=== PATIENT | male | born 1935 | race Caucasian/White ===

== ENCOUNTER 2016-12-25 11:58 | Inpatient (IN) | payer MEDICARE, BC ==
[2016-12-25] VITALS (13 sets, daily range): BP systolic 104–137; BP diastolic 51–63; PULSE 88–122; RESP 22–34; TEMP 98.2–98.7; O2SAT 70–98
[~2016-12-25] VITALS: Ht 170.2 cm; Wt 60.7 kg
[~2016-12-25 11:58] MED LIST: ALBU6.7H INH; ASPI81 PO; ATRO17AE INH; AZEL0.05 EACH NARE; CLIN1CAP6 PO; FLUT1INH INH; HYZA50TA2 PO; LOVA1TAB47 PO; NEXI40CA PO; PROP1TAB PO; SPIRCAP INH; TAMS0.4C67 PO; TOPR25TA2 PO; ZYRT10TA12 PO
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
[2016-12-25] MEDS ORDERED: methylPREDNISolone SOD SUCC 125 MG/2 ML VIAL IVP ONE (12:15)
[2016-12-25] MEDS ORDERED: SODIUM CHLORIDE 0.9% FLUSH 10 ML FLUSH IVF PRN (12:15)
[2016-12-25] MEDS: RESP: ALBUTEROL 2.5 MG/IPRATROPIUM 0.5 MG NEB (SCH) INH ×3 (12:25→20:00)
[2016-12-25 12:28] LABS: AUTOMATED NEUTROPHIL # 14.5 TH/MM3 (1.8-7.7); BASOPHIL # 0.1 TH/MM3 (0-0.2); BASOPHIL % 0.4 % (0.0-2.0); EOSINOPHIL # 0.1 TH/MM3 (0-0.4); EOSINOPHIL % 0.7 % (0.0-4.0); HEMO FLAGS DIFF FINAL; LYMPH % 11.7 % (9.0-44.0); LYMPHOCYTE # 2.1 TH/MM3 (1.0-4.8); MEAN CELL VOLUME 87.7 FL (80.0-100.0); MEAN CORPUSCULAR HEMOGLOBIN 29.3 PG (27.0-34.0); MEAN CORPUSCULAR HGB CONC 33.5 % (32.0-36.0); MONO % 5.5 % (0.0-8.0); NEUT % 81.7 % (16.0-70.0); PLATELET COUNT 299 TH/MM3 (150-450); RED BLOOD COUNT 5.24 MIL/MM3 (4.50-5.90); RED CELL DISTRIBUTION WIDTH 13.7 % (11.6-17.2); WHITE BLOOD COUNT 17.8 TH/MM3 (4.0-11.0)
--- NOTE | 2016-12-25 12:36 | RADRPT ---
EXAM DATE/TIME: 12/25/2016 12:22 [facility] COMPARISON: CHEST SINGLE AP, December 24, 2015, 9:19. INDICATIONS : Shortness of breath. MEDICAL HISTORY : Hypercholesterolemia. Hypertension Chronic obstructive pulmonary disease. SURGICAL HISTORY : Pacemaker. ENCOUNTER: Initial ACUITY: 1 day PAIN SCORE: 0/10 LOCATION: Bilateral chest FINDINGS: The patient has a pacing/AICD device in place from the left subclavian approach. The heart size is no rmal. There is patchy increased density/chronic interstitial change in the mid and lower lungs being most prominent the left lower lobe. There is increase density in the retrocardiac area and silhouetti ng of the left hemidiaphragm. CONCLUSION: New increased density in the left lower lobe silhouette the left hemidiaphragm. Some degree of consol idation, atelectasis and possible effusion at the left base needs to be considered. There is underlyi ng chronic interstitial change. Hunter Guthrie MD on December 25, 2016 at 12:24 Board Certified Radiologist. This report was verified electronically.
[2016-12-25 12:40] LABS: BLOOD GAS BASE EXCESS 4.5 mmol/L (-2-2); BLOOD GAS HCO3 28 mmol/L (22-26); BLOOD GAS METHEMOGLOBIN 0.5 % (0-2); BLOOD GAS O2 HGB SATURATION 95 % (90-100); BLOOD GAS OXYGEN CONTENT 20.5 Vol % (12.0-20.0); BLOOD GAS PCO2 39 mmHg (38-42); BLOOD GAS PO2 93 mmHG (61-120); BLOOD GAS TOTAL HGB 15.3 G/DL (12.0-16.0); TEMP CORR TO 98.6
[2016-12-25] MEDS ORDERED: LEVOFLOXACIN 750 MG PREMIX INJ 150 ML IV STA (12:40)
[2016-12-25 12:41] LABS: CRITICAL VALUE NO; DRAW SITE RT RADIAL; FIO2 100 %; NUMBER OF ARTERIAL PUNCTURES 1; OXYGEN DEVICE BiPAP; STAT YES; ULNAR PULSE PRESENT; VENT SETTINGS IPAP10/ EPAP5
[2016-12-25 12:50] LABS: ALT (GPT) 13 U/L (12-78); ANION GAP 10 MEQ/L (5-15); AST (GOT) 11 U/L (15-37); BICARBONATE 30.2 MEQ/L (21.0-32.0); BLOOD UREA NITROGEN 24 MG/DL (7-18); CHLORIDE 99 MEQ/L (98-107); GLOMERULAR FILTRATION RATE 67 ML/MIN (>89); SODIUM (NA) 139 MEQ/L (136-145)
[2016-12-25 12:52] LABS: ALKALINE PHOSPHATASE 71 U/L (45-117); TOTAL BILIRUBIN ADULT 1.4 MG/DL (0.2-1.0)
--- NOTE | 2016-12-25 13:18 | PD ---
Physical Exam Narrative Patient was seen and examined with my assistant news director. Data Data Last Documented VS Vital Signs Date Time Temp Pulse Resp B/P (MAP) Pulse Ox O2 Delivery O2 Flow Rate FiO2 12/25/16 13:15 98.2 12/25/16 13:00 91 Non-Rebreather 15.00 12/25/16 12:22 100 12/25/16 12:05 124 36 Orders Orders Complete Blood Count With Diff (12/25/16 12:06) Comprehensive Metabolic Panel (12/25/16 12:06) B-Type Natriuretic Peptide (12/25/16 12:06) Arterial Blood Gas (Abg) (12/25/16 12:06) Urinalysis - C+S If Indicated (12/25/16 12:06) Blood Culture (12/25/16 12:06) Iv Access Insert/Monitor (12/25/16 12:06) Electrocardiogram (12/25/16 12:06) Ecg Monitoring (12/25/16 12:06) Oximetry (12/25/16 12:06) Oxygen Administration (12/25/16 12:06) Chest, Single Ap (12/25/16 12:06) Sodium Chloride 0.9% Flush (Ns Flush) (12/25/16 12:15) Lactic Acid Sepsis Protocol (12/25/16 12:06) Albuterol-Ipratropium Neb (Duoneb Neb) (12/25/16 12:15) Resp Bipap / Cpap Non Invas Vt (12/25/16 12:12) Resp Bipap / Cpap Non Invas Vt (12/25/16 12:14) Levofloxacin 750 Mg Premix Inj (Levaquin (12/25/16 12:40) Labs Laboratory Tests Test 12/25/16 12:10 12/25/16 12:28 White Blood Count 17.8 TH/MM3 Red Blood Count 5.24 MIL/MM3 Hemoglobin 15.4 GM/DL Hematocrit 46.0 % Mean Corpuscular Volume 87.7 FL Mean Corpuscular Hemoglobin 29.3 PG Mean Corpuscular Hemoglobin Concent 33.5 % Red Cell Distribution Width 13.7 % Platelet Count 299 TH/MM3 Mean Platelet Volume 7.4 FL Neutrophils (%) (Auto) 81.7 % Lymphocytes (%) (Auto) 11.7 % Monocytes (%) (Auto) 5.5 % Eosinophils (%) (Auto) 0.7 % Basophils (%) (Auto) 0.4 % Neutrophils # (Auto) 14.5 TH/MM3 Lymphocytes # (Auto) 2.1 TH/MM3 Monocytes # (Auto) 1.0 TH/MM3 Eosinophils # (Auto) 0.1 TH/MM3 Basophils # (Auto) 0.1 TH/MM3 CBC Comment DIFF FINAL Differential Comment Blood Urea Nitrogen 24 MG/DL Creatinine 1.06 MG/DL Random Glucose 124 MG/DL Total Protein 7.9 GM/DL Albumin 3.1 GM/DL Calcium Level 8.7 MG/DL Alkaline Phosphatase 71 U/L Aspartate Amino Transf (AST/SGOT) 11 U/L Alanine Aminotransferase (ALT/SGPT) 13 U/L Total Bilirubin 1.4 MG/DL Sodium Level 139 MEQ/L Potassium Level 3.0 MEQ/L Chloride Level 99 MEQ/L Carbon Dioxide Level 30.2 MEQ/L Anion Gap 10 MEQ/L Estimat Glomerular Filtration Rate 67 ML/MIN Lactic Acid Level 2.3 mmol/L Blood Gas Puncture Site RT RADIAL Blood Gas Patient Temperature 98.6 Blood Gas HCO3 28 mmol/L Blood Gas Base Excess 4.5 mmol/L Blood Gas Oxygen Saturation 95 % Arterial Blood pH 7.47 Arterial Blood Partial Pressure CO2 39 mmHg Arterial Blood Partial Pressure O2 93 mmHG Arterial Blood Oxygen Content 20.5 Vol % Arterial Blood Carboxyhemoglobin 2.0 % Arterial Blood Methemoglobin 0.5 % Blood Gas Hemoglobin 15.3 G/DL Oxygen Delivery Device BiPAP Blood Gas Ventilator Setting IPAP10/ EPAP5 Blood Gas Inspired Oxygen 100 % MDM Supervised Visit with ABBI: Yes Regino Owusu MD Dec 25, 2016 13:18
[2016-12-25] MEDS ORDERED: POTASSIUM CHLOR 20 MEQ PREMIX 100 ML IV ONE (13:30)
[2016-12-25 14:21] LABS: LACTIC ACID GHOST NOT REPORTABLE
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
[2016-12-25] MEDS ORDERED: POTASSIUM PHOSPHATE MONOBASIC 500 MG TAB PO/TUBE PRN (15:00)
[2016-12-25] MEDS ORDERED: POTASSIUM CHLOR 40 MEQ PREMIX 100 ML IV PRN ×2 (15:00)
[2016-12-25] MEDS ORDERED: POTASSIUM PHOSPHATE INJ 30 MMOL in SODIUM CHLOR 0.9% 250 ML INJ 250 ML IV PRN (15:00)
[2016-12-25] MEDS ORDERED: SODIUM PHOSPHATE INJ 30 MMOL in SODIUM CHLOR 0.9% 250 ML INJ 240 ML IV PRN (15:00)
[2016-12-25] MEDS ORDERED: MAGNESIUM OXIDE 400 MG TAB PO PRN (15:00)
[2016-12-25] MEDS ORDERED: POTASSIUM PHOSPHATE MONOBASIC 500 MG TAB PO PRN (15:00)
[2016-12-25] MEDS ORDERED: MAGNESIUM SULFATE INJ 4 GM in SODIUM CHLORIDE 0.9% INJ 92 ML IV PRN (15:00)
[2016-12-25] MEDS ORDERED: MISCELLANEOUS NURSING INFORMATION XX SCH (15:00)
[2016-12-25] MEDS ORDERED: CHLORHEXIDINE GLUCONATE 2 % 1 PACK (2 CLOTHS) TOP PRN (15:00)
[2016-12-25] MEDS ORDERED: RESP: ALBUTEROL 2.5 MG/IPRATROPIUM 0.5 MG NEB (PRN) INH (15:00)
[2016-12-25] MEDS ORDERED: MAGNESIUM SULFATE INJ 2 GM in SODIUM CHLORIDE 0.9% INJ 96 ML IV PRN (15:00)
[2016-12-25] MEDS ORDERED: POTASSIUM CHLOR 20 MEQ PREMIX 100 ML IV PRN (15:00)
[2016-12-25] MEDS ORDERED: ACETAMINOPHEN 325 MG TAB PO PRN (15:00)
[2016-12-25] MEDS ORDERED: ONDANSETRON HCL 4 MG/2 ML VIAL IV PUSH PRN (15:00)
[2016-12-25] MEDS: HEPARIN SODIUM - SQ 10,000 UNITS/ML VIAL SQ SCH ×2 (15:27→23:30)
[2016-12-25] MEDS: POTASSIUM CHLOR 20 MEQ PREMIX 100 ML IV PRN ×3 (16:52→20:56)
[2016-12-25] MEDS: methylPREDNISolone SOD SUCC 125 MG/2 ML VIAL IV PUSH SCH (20:50)
[2016-12-25] MEDS: DOCUSATE SODIUM 50 MG/SENNA 8.6 MG TAB PO SCH (20:50)
[2016-12-25] MEDS: FAMOTIDINE 20 MG TAB PO SCH (20:50)
[2016-12-26] VITALS (17 sets, daily range): BP systolic 102–128; BP diastolic 56–65; PULSE 82–100; RESP 22–28; TEMP 96.8–98.4; O2SAT 90–97
[2016-12-26 01:24] LABS: BACTERIA, URINE OCC /hpf; BLOOD, URINE NEG (NEG); COMMENT (UR) CULT NOT INDICATED; CULTURE IF INDICATED CULT NOT INDICATED; GLUCOSE,URINE NEG (NEG); HYALINE CAST, URINE 1 /lpf (RARE); KETONE, URINE 10 mg/dL (NEG); MUCUS URINE FEW /lpf (OCC); NITRITE,URINE NEG (NEG); PH, URINE 5.5 (5.0-8.5); SQUAMOUS EPITHELIAL CELL URINE <1 /hpf (0-5); URINE COLOR YELLOW (YELLW/STRAW)
[2016-12-26] MEDS: RESP: ALBUTEROL 2.5 MG/IPRATROPIUM 0.5 MG NEB (SCH) INH ×6 (03:31→20:09)
[2016-12-26] MEDS: CHLORHEXIDINE GLUCONATE 2 % 1 PACK (2 CLOTHS) TOP SCH (04:00)
--- NOTE | 2016-12-26 06:26 | RADRPT ---
EXAM DATE/TIME: 12/26/2016 05:26 [facility] COMPARISON: CHEST SINGLE AP, December 25, 2016, 12:22. INDICATIONS : Short of breath. MEDICAL HISTORY : None. SURGICAL HISTORY : Pacemaker. ENCOUNTER: Subsequent ACUITY: 3 days PAIN SCORE: 0/10 LOCATION: Bilateral chest FINDINGS: A single view of the chest demonstrates pacer leads overlying right atrium and right ventricle. Bilat eral mostly basilar airspace disease. No pneumothorax. Heart size upper limits normal. CONCLUSION: 1. Basilar airspace disease and small effusions, similar to December 25. No pneumothorax. Tom Fairchild MD on December 26, 2016 at 6:23 Board Certified Radiologist. This report was verified electronically.
[2016-12-26] MEDS: HEPARIN SODIUM - SQ 10,000 UNITS/ML VIAL SQ SCH ×3 (06:29→21:24)
[2016-12-26 07:24] LABS: HEMATOCRIT 42.8 % (39.0-51.0); MEAN CELL VOLUME 87.4 FL (80.0-100.0); MEAN CORPUSCULAR HEMOGLOBIN 29.4 PG (27.0-34.0); MEAN CORPUSCULAR HGB CONC 33.6 % (32.0-36.0); PLATELET COUNT 241 TH/MM3 (150-450); RED CELL DISTRIBUTION WIDTH 13.8 % (11.6-17.2); WHITE BLOOD COUNT 9.8 TH/MM3 (4.0-11.0)
[2016-12-26 07:29] LABS: REVIEW FLAG FINAL
[2016-12-26 07:49] LABS: BICARBONATE 29.4 MEQ/L (21.0-32.0); POTASSIUM 4.1 MEQ/L (3.5-5.1)
[2016-12-26] MEDS: FAMOTIDINE 20 MG TAB PO SCH ×2 (08:58→21:24)
[2016-12-26] MEDS: DOCUSATE SODIUM 50 MG/SENNA 8.6 MG TAB PO SCH ×2 (08:58→21:24)
[2016-12-26] MEDS: methylPREDNISolone SOD SUCC 125 MG/2 ML VIAL IV PUSH SCH ×2 (08:59→21:24)
[2016-12-26] MEDS ORDERED: SODIUM CHLOR 0.9% 1000 ML INJ 1,000 ML IV SCH (10:15)
--- NOTE | 2016-12-26 11:36 | PD.CONS ---
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 clinically warranted. == Palliative care symptoms. * Pain: Patient has a history of years of back pain. THough he frequently complains of back pain (per daughter) he rarely takes any analgesics. No other pain syndromes known. * Dyspnea: Currently comfortable at rest on high flow 02. Patient's dyspnea likely due to COPD exacerbation and/or pneumonia. Nebulizers, antibiotics, and steroids under way. No further recommendations at this time. * Anxiety: Does not appear to be an issue. * Depression: Does not appear to be an issue * Poor appetite/Wt loss: Patient complains he does not have much of an appetite and that he has lost about 20 lbs over the past year or so. Unclear is this is because of illness or not having the energy to shop and prepare meals. Will need to monitor. Albumin does not suggest long term care social worker malnutrition. Will watch food consumption during hospitalization to see if he eats well and food is brought to him. We will probably see increased appetite and weight gain on steroids. * Bowel activity: Hx of intermittent constipation per daughter. No bowel movements since hospitalized. Will start a bowel protocol. == Communication: Though it is time consuming, it is best for important communication to write things down so the patient can read them and then respond verbally. == Disposition: Patient is likely to require a period of rehab prior to returning to independent living (if he is ever able to return to independent living). Daughter very much wants to bring him back to [facility] and wants him to consider assisted living, but according to her, he has been very resistant. == Daughter is trying to make arrangements to fly here from [facility]. We can re-visit goals of care and resuscitation status when she is here to support him and assist with shared decision making. == Patient's regular game technician is Dr. Ponce if a cardiology consultation is ever needed. Dr. Gastelum is the patient's primary care physician. == Palliative care will continue to follow to assist with symptom management and further clarify goals of medical treatment as the clinical course evolves. . Thank you for the opportunity to participate in the care of Mr. Ayala. . Collaborating MD Comments . Attestation To help prompt me to consider important information that might be impacting today's encounter and assessment, information from prior notes written by myself or my colleagues may have been "brought forward" into today's note. My signature on this note, however, is an attestation that I personally performed the exam, history, and/or decision-making noted today, and, unless otherwise indicated, the interactions with patient, family, and staff as well as the review of records all occurred today. I also attest that the listed assessment and stated plan reflect my best clinical judgment today based on the combination of historical information, prior notes, and today's exam/ interactions. When time spent is documented, it refers only to time spent today by the signer, or if indicated, combined time spent today by collaborating physician/nurse practitioner. . Bayron Kasper MD Dec 26, 2016 11:36
--- NOTE | 2016-12-26 12:18 | HHI.HCSW ---
Rn Review Visit Advance Directive Attempted to identify legal decision maker. Daughter, Estefany, listed in EMR has a phone number ([phone]) that has a voicemail that has not been set up. Other providers unsuccessful with this number as well. Requested accurints to find other contact information/other family. Google search produced a potential match with #[phone]. Number just rings, no voicemail. Nurse able to obtain additional contact information for daughter: [phone]. I was able to speak with daughter, palliative care MD to follow-up. Iza Iraheta, VEGETABLE TIER Dec 26, 2016 12:18
--- NOTE | 2016-12-26 12:39 | EKG ---
Date Performed: 12/25/2016 Time Performed: 12:58:30 PTAGE: 81 years EKG: SINUS TACHYCARDIA Left bundle branch block ABNORMAL ECG PREVIOUS TRACING : 04/22/2010 18.07 Since the prior tracing, the sinus tachycardia is new, but there has otherwise been no significant serial change. DOCTOR: Theresa Harris Interpretating Date/Time 12/26/2016 12:37:42
[2016-12-26] MEDS: LEVOFLOXACIN 750 MG PREMIX INJ 150 ML IV SCH (12:41)
--- NOTE | 2016-12-26 14:20 | HHI.PR ---
Subjective Remarks Patient is pleasant elderly but he is extremely difficult to communicate with due to his hard hearing I tried with the witnessing of the nurse to assess and address his advanced directive, however when I asked him if he wants resuscitation he was not sure " I don't know "he repeat that many times he said his daughter may be able to help with this Yesterday the unit aide discussed with the family, was unable to fully address this issue, palliative care consulted, currently patient is on 50% nonrebreather mask at 91% SaO2 Objective Vitals Vital Signs Date Time Temp Pulse Resp B/P (MAP) Pulse Ox O2 Delivery O2 Flow Rate FiO2 12/26/16 14:00 95 12/26/16 12:00 98.4 96 22 107/56 (73) 93 12/26/16 12:00 96 12/26/16 09:22 94 Venturi Mask 6.00 50 12/26/16 08:47 93 Partial Rebreather 12.00 12/26/16 08:00 96.8 87 26 111/59 (76) 94 12/26/16 07:00 93 Partial Non-Rebreather 12.00 12/26/16 06:00 86 12/26/16 04:00 97.1 94 28 128/65 (86) 92 12/26/16 04:00 94 12/26/16 03:40 92 Venturi Mask 50 12/26/16 03:38 97 Partial Rebreather 12.00 12/26/16 02:00 82 12/26/16 00:00 97.0 82 23 107/60 (76) 96 12/26/16 00:00 82 12/25/16 22:00 88 12/25/16 20:00 98.5 98 28 104/56 (72) 98 12/25/16 20:00 98 12/25/16 20:00 94 Partial Non-Rebreather 12/25/16 18:00 100 12/25/16 16:00 98.5 104 29 106/60 (75) 94 12/25/16 16:00 106 12/25/16 15:49 98.7 105 22 119/63 (81) 94 12/25/16 15:30 12/25/16 14:28 117 32 114/51 (72) 84 Nasal Cannula 6.00 12/25/16 14:23 84 Nasal Cannula 6.00 I/O 12/25/16 12/25/16 12/25/16 12/26/16 12/26/16 12/26/16 07:00 15:00 23:00 07:00 15:00 23:00 Intake Total 550 ml 120 ml Output Total 0 ml 250 ml Balance 550 ml -130 ml Intake Oral 0 ml 120 ml IV Total 550 ml Output Urine Total 0 ml 250 ml # Voids 1 # Bowel Movements 0 Result Diagram: 12/26/1652912/26/16529 Objective Remarks GENERAL: This is a frail elderly man on nonrebreather mask, he is hard hearing SKIN: No rashes, warm and dry HEAD: Atraumatic. Normocephalic. EYES: Pupils equal round and reactive. Extraocular motions intact. No scleral icterus. ENT: Nose without bleeding, or drainage, Airway patent. NECK: Trachea midline. Supple CARDIOVASCULAR: Regular tachycardia without murmurs, gallops, or rubs. RESPIRATORY: b/l crackles GASTROINTESTINAL: Abdomen soft, non-tender, nondistended. Positive bowel sounds MUSCULOSKELETAL: Extremities without clubbing, cyanosis, or edema. Pedal pulses appreciated NEUROLOGICAL: Awake and alert. Hard hearing Moves all extremity. Normal speech.no focal neurological deficit A/P Assessment and Plan 81yM with o2 dependent copd, COPD exacerbation, community acquired LLL pneumonia, and acute hypoxic respiratory failure. Assessment COPD Exacerbation LLL pneumonia Lactic Acidosis Possible sepsis Dehydration looked clinically Plan: Chest x-ray reviewed by me showed bibasilar airspace disease Will give half liter normal saline at 100 cc/h and monitor Nonrebreather mask O2, DuoNeb, Solu-Medrol, Levaquin Appreciate refused BiPAP Follow lactic acid Attempted to address advanced directive with the patient however that was extremely difficult and eventually he refused to make a decision Awaiting palliative care consult SQH, SCDs, Adrienne Aviles MD Dec 26, 2016 14:20
[2016-12-26] MEDS ORDERED: SENNOSIDES 8.6 MG TAB PO PRN (15:15)
[2016-12-27] VITALS (14 sets, daily range): BP systolic 112–133; BP diastolic 59–66; PULSE 84–101; RESP 18–26; TEMP 97.9–99; O2SAT 94–100
[2016-12-27] MEDS: RESP: ALBUTEROL 2.5 MG/IPRATROPIUM 0.5 MG NEB (SCH) INH ×6 (00:13→20:12)
[2016-12-27] MEDS: CHLORHEXIDINE GLUCONATE 2 % 1 PACK (2 CLOTHS) TOP SCH (04:00)
[2016-12-27 07:35] LABS: HEMATOCRIT 41.3 % (39.0-51.0); MEAN CELL VOLUME 86.5 FL (80.0-100.0); MEAN CORPUSCULAR HEMOGLOBIN 28.4 PG (27.0-34.0); MEAN CORPUSCULAR HGB CONC 32.8 % (32.0-36.0); PLATELET COUNT 231 TH/MM3 (150-450); RED BLOOD COUNT 4.78 MIL/MM3 (4.50-5.90); RED CELL DISTRIBUTION WIDTH 13.8 % (11.6-17.2); REVIEW FLAG FINAL; WHITE BLOOD COUNT 12.1 TH/MM3 (4.0-11.0)
[2016-12-27 07:53] LABS: POTASSIUM 3.8 MEQ/L (3.5-5.1)
[2016-12-27] MEDS: FAMOTIDINE 20 MG TAB PO SCH ×2 (09:00→21:51)
[2016-12-27] MEDS: DOCUSATE SODIUM 50 MG/SENNA 8.6 MG TAB PO SCH ×2 (09:00→21:00)
[2016-12-27] MEDS: methylPREDNISolone SOD SUCC 125 MG/2 ML VIAL IV PUSH SCH ×2 (10:49→21:51)
[2016-12-27] MEDS: LEVOFLOXACIN 750 MG PREMIX INJ 150 ML IV SCH (12:00)
[2016-12-27] MEDS: HEPARIN SODIUM - SQ 10,000 UNITS/ML VIAL SQ SCH ×2 (15:00→21:52)
--- NOTE | 2016-12-27 19:38 | HHI.PR ---
Subjective Remarks Patient still on nonrebreather mask, awake alert, stable on oxygen mask I discussed with the daughter who was at the bedside, she already discussed with Dr. Kasper and decided on going with aggressive treatment including intubation however that would be temporarily, if patient goes into vegetative state then he would like to be withdrawn Objective Vitals Vital Signs Date Time Temp Pulse Resp B/P (MAP) Pulse Ox O2 Delivery O2 Flow Rate FiO2 12/27/16 18:00 91 12/27/16 16:00 91 12/27/16 16:00 98.0 96 19 118/63 (81) 97 12/27/16 14:00 91 12/27/16 12:00 98.5 92 21 129/62 (84) 100 12/27/16 12:00 91 12/27/16 10:00 91 12/27/16 08:12 95 Partial Rebreather 12.00 12/27/16 08:00 98.4 85 26 125/64 (84) 96 12/27/16 08:00 91 12/27/16 07:00 Partial Non-Rebreather 12.00 50 12/27/16 06:00 89 12/27/16 04:00 98.1 87 19 117/59 (78) 94 12/27/16 04:00 87 12/27/16 02:00 84 12/27/16 00:00 85 12/27/16 00:00 97.9 85 18 112/61 (78) 96 12/26/16 22:00 92 12/26/16 20:09 90 Partial Rebreather 12.00 12/26/16 20:00 98.0 100 22 102/56 (71) 95 12/26/16 20:00 100 I/O 12/26/16 12/26/16 12/26/16 12/27/16 12/27/16 12/27/16 07:00 15:00 23:00 07:00 15:00 23:00 Intake Total 120 ml 896 ml 482 ml 120 ml 0 ml 496 ml Output Total 250 ml 100 ml 25 ml Balance -130 ml 796 ml 457 ml 120 ml 0 ml 496 ml Intake Oral 120 ml 382 ml 120 ml 0 ml 240 ml IV Total 896 ml 100 ml 0 ml 256 ml Output Urine Total 250 ml 100 ml 25 ml # Voids 1 1 1 0 3 # Bowel Movements 0 0 0 4 Result Diagram: 12/27/16 0545 12/27/16 0545 Objective Remarks GENERAL: This is a frail elderly man on nonrebreather mask, he is hard hearing SKIN: No rashes, warm and dry HEAD: Atraumatic. Normocephalic. EYES: Pupils equal round and reactive. Extraocular motions intact. No scleral icterus. ENT: Nose without bleeding, or drainage, Airway patent. NECK: Trachea midline. Supple CARDIOVASCULAR: Regular tachycardia without murmurs, gallops, or rubs. RESPIRATORY: b/l crackles GASTROINTESTINAL: Abdomen soft, non-tender, nondistended. Positive bowel sounds MUSCULOSKELETAL: Extremities without clubbing, cyanosis, or edema. Pedal pulses appreciated NEUROLOGICAL: Awake and alert. Hard hearing Moves all extremity. Normal speech.no focal neurological deficit A/P Assessment and Plan 81yM with o2 dependent copd, COPD exacerbation, community acquired LLL pneumonia, and acute hypoxic respiratory failure. Assessment COPD Exacerbation LLL pneumonia Lactic Acidosis Possible sepsis Dehydration looked clinically Plan: Appreciated palliative care consult, I personally discussed with the daughter and she confirmed wanting aggressive treatment including intubation at this point Chest x-ray reviewed by me showed bibasilar airspace disease Status post half liter normal saline at 100 cc/h and monitor Nonrebreather mask O2, DuoNeb, Solu-Medrol, Levaquin Appreciate refused BiPAP Follow lactic acid Attempted to address advanced directive with the patient however that was extremely difficult and eventually he refused to make a decision DIOGO, SCDs, Adrienne Aviles MD Dec 27, 2016 19:38
--- NOTE | 2016-12-27 20:46 | HHI.HCPN ---
Reason for visit a. To assist with evaluation and management of symptoms including: dyspnea b. To assist medical decision maker(s) with: better understanding of current medical conditions; weighing benefits/burdens of medical treatment options; making medical treatment decisions. . Subjective/Interval History Patient's daughter has arrived from [place] and is at bedside. Patient reports he has no pain. He is still requiring high 02 flow but denies dyspnea with 02 at rest. Tolerating fluids. No other complaints. Nursing pain assessments show level 0. Not needing any PRN meds. Physical therapy noted sats dropping to 88/89 with any exertion. Afebrile. Hemodynamically stable. Bowels moving today. Voiding via condom catheter. CBC stable. Renal function good. No new CXR. . Family/friend interactions Daughter frustrated that patient is so stubborn. SHe wants very much to bring him back to [place] but he refuses. He fires people she tries to get in to help him. He decides on his own to titrate down his 02 flow at home . We discussed his need for post hospitalization rehab. Unclear even after rehab if he will be able to live independently again. . Advance Directives Living Will: Completed, but not made available Health Care Surrogate: Completed, but not made available Durable Power of Mold Mover: Completed, but not made available Advance Directive Specifics Date completed: No completed living will. Patient has completed a verbal health care surrogate designation on 12/26/16. He wants his daughter to serve as surrogate. . . Health Care Surrogate(s): He has designated his daughter -- Estefany Ayala. . . Documented care wishes: No written documentation of health care wishes. . Objective Vital Signs Date Time Temp Pulse Resp B/P (MAP) Pulse Ox O2 Delivery O2 Flow Rate FiO2 12/27/16 20:12 94 Partial Rebreather 12.00 12/27/16 18:00 91 12/27/16 16:00 91 12/27/16 16:00 98.0 96 19 118/63 (81) 97 12/27/16 14:00 91 12/27/16 12:00 98.5 92 21 129/62 (84) 100 12/27/16 12:00 91 12/27/16 10:00 91 12/27/16 08:12 95 Partial Rebreather 12.00 12/27/16 08:00 98.4 85 26 125/64 (84) 96 12/27/16 08:00 91 12/27/16 07:00 Partial Non-Rebreather 12.00 50 12/27/16 06:00 89 12/27/16 04:00 98.1 87 19 117/59 (78) 94 12/27/16 04:00 87 12/27/16 02:00 84 12/27/16 00:00 85 12/27/16 00:00 97.9 85 18 112/61 (78) 96 12/26/16 22:00 92 . Physical Exam CONSTITUTIONAL/GENERAL: This is a thin, pale male in no distress in an MICU bed. He is very hard of hearing making for challenging communication. TUBES/LINES/DRAINS: Peripehral IV; non-rebreather mask; condom catheter. SKIN: No jaundice, rashes, or lesions. No wounds seen anteriorly. Skin temperature appropriate. Not diaphoretic. EYES: Pupils equal and round. Extraocular motions intact. No scleral icterus. No injection or drainage. Fundi not examined. ENT: VERY hard of hearing. hearing aid in right ear. Nose without bleeding or purulent drainage. Throat without visible erythema, exudates, masses, or lesions. NECK: Trachea midline. Supple, nontender. CARDIOVASCULAR: Regular rate and rhythm without murmurs, gallops, or rubs. No JVD. RESPIRATORY/CHEST: Symmetric, unlabored respirations. Breath sounds equal bilaterally but quite diminished. . No wheezing. Scattered faint ronchi. Periodic wet sounding cough. GASTROINTESTINAL: Abdomen soft, non-tender, nondistended. No hepato-splenomegaly , or palpable masses. No guarding. Bowel sounds present. GENITOURINARY: Without palpable bladder distension. Condom catheter in place. MUSCULOSKELETAL: Extremities without clubbing, cyanosis, or edema... No mottling . LYMPHATICS: not examined NEUROLOGICAL: Awake and alert. Motor and sensory grossly within normal limits. Follows commands. Cognitively sharp. Moves all extremities. PSYCHIATRIC: No obvious anxiety/depression. No apparent hallucinations or other psychotic thought process. . Diagnostic Tests Laboratory Laboratory Tests Test 12/25/16 12:10 12/25/16 12:28 12/25/16 14:21 12/25/16 14:30 White Blood Count 17.8 TH/MM3 (4.0-11.0) Red Blood Count 5.24 MIL/MM3 (4.50-5.90) Hemoglobin 15.4 GM/DL (13.0-17.0) Hematocrit 46.0 % (39.0-51.0) Mean Corpuscular Volume 87.7 FL (80.0-100.0) Mean Corpuscular Hemoglobin 29.3 PG (27.0-34.0) Mean Corpuscular Hemoglobin Concent 33.5 % (32.0-36.0) Red Cell Distribution Width 13.7 % (11.6-17.2) Platelet Count 299 TH/MM3 (150-450) Mean Platelet Volume 7.4 FL (7.0-11.0) Neutrophils (%) (Auto) 81.7 % (16.0-70.0) Lymphocytes (%) (Auto) 11.7 % (9.0-44.0) Monocytes (%) (Auto) 5.5 % (0.0-8.0) Eosinophils (%) (Auto) 0.7 % (0.0-4.0) Basophils (%) (Auto) 0.4 % (0.0-2.0) Neutrophils # (Auto) 14.5 TH/MM3 (1.8-7.7) Lymphocytes # (Auto) 2.1 TH/MM3 (1.0-4.8) Monocytes # (Auto) 1.0 TH/MM3 (0-0.9) Eosinophils # (Auto) 0.1 TH/MM3 (0-0.4) Basophils # (Auto) 0.1 TH/MM3 (0-0.2) CBC Comment DIFF FINAL Differential Comment Blood Urea Nitrogen 24 MG/DL (7-18) Creatinine 1.06 MG/DL (0.60-1.30) Random Glucose 124 MG/DL (74-106) Total Protein 7.9 GM/DL (6.4-8.2) Albumin 3.1 GM/DL (3.4-5.0) Calcium Level 8.7 MG/DL (8.5-10.1) Alkaline Phosphatase 71 U/L (45-117) Aspartate Amino Transf (AST/SGOT) 11 U/L (15-37) Alanine Aminotransferase (ALT/SGPT) 13 U/L (12-78) Total Bilirubin 1.4 MG/DL (0.2-1.0) Sodium Level 139 MEQ/L (136-145) Potassium Level 3.0 MEQ/L (3.5-5.1) Chloride Level 99 MEQ/L (98-107) Carbon Dioxide Level 30.2 MEQ/L (21.0-32.0) Anion Gap 10 MEQ/L (5-15) Estimat Glomerular Filtration Rate 67 ML/MIN (>89) Lactic Acid Level 2.3 mmol/L (0.4-2.0) 1.1 mmol/L (0.4-2.0) Blood Gas Puncture Site RT RADIAL Blood Gas Patient Temperature 98.6 Blood Gas HCO3 28 mmol/L (22-26) Blood Gas Base Excess 4.5 mmol/L (-2-2) Blood Gas Oxygen Saturation 95 % (90-100) Arterial Blood pH 7.47 (7.380-7.420) Arterial Blood Partial Pressure CO2 39 mmHg (38-42) Arterial Blood Partial Pressure O2 93 mmHG (61-120) Arterial Blood Oxygen Content 20.5 Vol % (12.0-20.0) Arterial Blood Carboxyhemoglobin 2.0 % (0-4) Arterial Blood Methemoglobin 0.5 % (0-2) Blood Gas Hemoglobin 15.3 G/DL (12.0-16.0) Oxygen Delivery Device BiPAP Blood Gas Ventilator Setting IPAP10/ EPAP5 Blood Gas Inspired Oxygen 100 % B-Type Natriuretic Peptide 61 PG/ML (0-100) Test 12/25/16 14:52 12/25/16 15:59 12/26/16 00:15 12/26/16 05:30 Nasal Screen MRSA (PCR) MRSA NOT DETECTED (NOT Lactic Acid Level 0.9 mmol/L (0.4-2.0) Urine Color YELLOW (YELLW/STRAW) Urine Turbidity HAZY (CLEAR) Urine pH 5.5 (5.0-8.5) Urine Specific [place] 1.024 (1.002-1.035) Urine Protein TRACE mg/dL (NEG-TRACE) Urine Glucose (UA) NEG mg/dL (NEG) Urine Ketones 10 mg/dL (NEG) Urine Occult Blood NEG (NEG) Urine Nitrite NEG (NEG) Urine Bilirubin NEG (NEG) Urine Urobilinogen LESS THAN 2.0 MG/DL (LESS Urine Leukocyte Esterase TRACE (NEG) Urine RBC 1 /hpf (0-3) Urine WBC 5 /hpf (0-5) Urine Squamous Epithelial Cells <1 /hpf (0-5) Urine Bacteria OCC /hpf (NONE) Urine Hyaline Casts 1 /lpf (RARE) Urine Mucus FEW /lpf (OCC) Microscopic Urinalysis Comment CULT NOT INDICATED White Blood Count 9.8 TH/MM3 (4.0-11.0) Red Blood Count 4.90 MIL/MM3 (4.50-5.90) Hemoglobin 14.4 GM/DL (13.0-17.0) Hematocrit 42.8 % (39.0-51.0) Mean Corpuscular Volume 87.4 FL (80.0-100.0) Mean Corpuscular Hemoglobin 29.4 PG (27.0-34.0) Mean Corpuscular Hemoglobin Concent 33.6 % (32.0-36.0) Red Cell Distribution Width 13.8 % (11.6-17.2) Platelet Count 241 TH/MM3 (150-450) Mean Platelet Volume 7.4 FL (7.0-11.0) Blood Urea Nitrogen 28 MG/DL (7-18) Creatinine 0.92 MG/DL (0.60-1.30) Random Glucose 156 MG/DL (74-106) Calcium Level 8.6 MG/DL (8.5-10.1) Sodium Level 139 MEQ/L (136-145) Potassium Level 4.1 MEQ/L (3.5-5.1) Chloride Level 103 MEQ/L (98-107) Carbon Dioxide Level 29.4 MEQ/L (21.0-32.0) Anion Gap 7 MEQ/L (5-15) Estimat Glomerular Filtration Rate 79 ML/MIN (>89) Test 12/27/16 05:45 White Blood Count 12.1 TH/MM3 (4.0-11.0) Red Blood Count 4.78 MIL/MM3 (4.50-5.90) Hemoglobin 13.5 GM/DL (13.0-17.0) Hematocrit 41.3 % (39.0-51.0) Mean Corpuscular Volume 86.5 FL (80.0-100.0) Mean Corpuscular Hemoglobin 28.4 PG (27.0-34.0) Mean Corpuscular Hemoglobin Concent 32.8 % (32.0-36.0) Red Cell Distribution Width 13.8 % (11.6-17.2) Platelet Count 231 TH/MM3 (150-450) Mean Platelet Volume 7.2 FL (7.0-11.0) Blood Urea Nitrogen 25 MG/DL (7-18) Creatinine 0.82 MG/DL (0.60-1.30) Random Glucose 173 MG/DL (74-106) Calcium Level 8.6 MG/DL (8.5-10.1) Sodium Level 141 MEQ/L (136-145) Potassium Level 3.8 MEQ/L (3.5-5.1) Chloride Level 104 MEQ/L (98-107) Carbon Dioxide Level 30.0 MEQ/L (21.0-32.0) Anion Gap 7 MEQ/L (5-15) Estimat Glomerular Filtration Rate 90 ML/MIN (>89) . Result Diagram: 12/27/1645 12/27/16544 Microbiology Microbiology Date/Time Source Procedure Growth Status 12/25/16 12:10 Blood Line Aerobic Blood Culture - Preliminary NO GROWTH IN 2 DAYS Resulted 12/25/16 12:10 Blood Line Anaerobic Blood Culture - Preliminary NO GROWTH IN 2 DAYS Resulted 12/25/16 12:05 Blood Line Aerobic Blood Culture - Preliminary NO GROWTH IN 2 DAYS Resulted 12/25/16 12:05 Blood Line Anaerobic Blood Culture - Preliminary NO GROWTH IN 2 DAYS Resulted Imaging Last Impressions Chest X-Ray 12/26/16 0600 Signed Impressions: Service Date/Time: Monday, December 26, 2016 05:26 - CONCLUSION: 1. Basilar airspace disease and small effusions, similar to December 25. No pneumothorax. Tom Fairchild MD . Assessment and Plan Disease Oriented Problem List: (1) COPD (chronic obstructive pulmonary disease) (2) Pneumonia (3) COPD exacerbation (4) Weight loss (5) Hard of hearing (6) Coronary artery disease (7) Cardiac defibrillator in place Comment: Patient has never experienced a shock from his AICD. . (8) BPH (benign prostatic hyperplasia) Symptom Scale: (1) Dyspnea 0-10 Scale: 0 Comment: Dyspnea probably secondary to COPD exacerbation and/or pneumonia. Dyspnea controlled at rest on high flow 02, nebs, iv antibiotics, steroids. . (2) Pain 0-10 Scale: 0 Comment: Frequently complains of back pain which has been present for many years. No complaints at this time. . . (3) Weight loss 0-10 Scale: Unable to quantify (Patient estimates he has lost about 20 lbs in the last year or so. ) Pertinent Non-Medical Issues Psychosocial: Normally lives alone, drives, ambulates without assistive device. May be getting more difficult for him to live independently. Spiritual: [employer] -- need to evaluate further. Legal: No known written living will at this time.. Has verbally stated he wants his daughter to serve as health care surrogate (he does not want his son making decision). Ethical issues impacting care: No ethical issues impacting care at this time. . Important Contacts * Estefany Ayala (daughter and health care surrogate) [phone] * Patient's son is homeless -- no contact info. . . Prognosis Patient had been living independently up until this hospitalization. He has not had a history of hospitalizations for his breathing problems. He has never been intubated. Given the above, there is a good chance of him surviving this hospitalization. However, I am concerned about the unexplained weight loss reported. If that is due to underlying illness, then we would expect a fairly rapid decline and inability to care for himself much longer. If the weight loss is due to decreasing ability to shop and prepare his own meals, he might do well for some time if meals are arranged for. . Code Status: Full Code Plan == Code Status: FULL CODE. Patient clearly indicated to me that he does "not want to be a vegetable" and does not want to be left on life support if the doctors don't think he has a good chance of recovery. Other than that, he would want full resuscitation understanding that it chest compressions might cause fractured ribs and we would not know the quality of life post resuscitation attempt. Daughter plans to further review code status with him as if he would require resuscitation his chances of returning to independent living are almost nil. == Decision making: Patient is currently capacitated to make his own health care decisions. Should he become incapacitated, he would want his daughter -- Estefany Ayala -- to make those decisions for him. I presented options to him on paper in large font. He selected his daughter consistently. This was witnessed by the nursing staff (Lorie). The patient has specifically stated that he does not want his son to serve as surrogate. == Goals of medical treatment: patient desires ongoing aggressive care including resuscitation attempts as noted above. Patient is hoping to return to independent living. Patient has refused BiPAP and on occasion -- non- rebreather masks. Based on his wishes, I would honor his requests . However, if he fails non-invasive modalities for ventilation and becomes unable to make his own decisions, he should be intubated and placed on mechanical ventilation if clinically warranted. == Palliative care symptoms. * Pain: Patient has a history of years of back pain. Though he frequently complains of back pain (per daughter) he rarely takes any analgesics. No other pain syndromes known. * Dyspnea: Currently comfortable at rest on high flow 02. Patient's dyspnea likely due to COPD exacerbation and/or pneumonia. Nebulizers, antibiotics, and steroids under way. No further recommendations at this time. * Anxiety: Does not appear to be an issue. * Depression: Does not appear to be an issue * Poor appetite/Wt loss: Patient complains he does not have much of an appetite and that he has lost about 20 lbs over the past year or so. Unclear is this is because of illness or not having the energy to shop and prepare meals. Will need to monitor. Albumin does not suggest detention malnutrition. Will watch food consumption during hospitalization to see if he eats well and food is brought to him. We will probably see increased appetite and weight gain on steroids. * Bowel activity: Hx of intermittent constipation per daughter. Bowels began moving 12/27/16 with start of bowel protocol. == Communication: Though it is time consuming, it is best for important communication to write things down so the patient can read them and then respond verbally. == Disposition: Patient is likely to require a period of rehab prior to returning to independent living (if he is ever able to return to independent living). Daughter very much wants to bring him back to [facility] and wants him to consider assisted living, but according to her, he has been very resistant. == Daughter has arrived from [facility]. She agrees to re-visit goals of care and resuscitation status with him. She will also help with post discharge planning. Recommend that daughter be included in any important decision making. == Patient's regular mechanical design technician is Dr. Ponce if a cardiology consultation is ever needed. Dr. Gastelum is the patient's primary care physician. == Palliative care will continue to follow to assist with symptom management and further clarify goals of medical treatment as the clinical course evolves. . Time Spent Total Floor Time (mins): 40 (Over 40 minutes spent on floor with chart review, patient exam, discussion with patient and daughter about current condition and post discharge options, and resucistation status.) Face to Face Time (mins): 25 >50% Counseling/Coord of Care: Yes Attestation To help prompt me to consider important information that might be impacting today's encounter and assessment, information from prior notes written by myself or my colleagues may have been "brought forward" into today's note. My signature on this note, however, is an attestation that I personally performed the exam, history, and/or decision-making noted today, and, unless otherwise indicated, the interactions with patient, family, and staff as well as the review of records all occurred today. I also attest that the listed assessment and stated plan reflect my best clinical judgment today based on the combination of historical information, prior notes, and today's exam/ interactions. When time spent is documented, it refers only to time spent today by the signer, or if indicated, combined time spent today by collaborating physician/nurse practitioner. . Bayron Kasper MD Dec 27, 2016 20:46
[2016-12-28] VITALS (14 sets, daily range): BP systolic 112–128; BP diastolic 60–71; PULSE 93–114; RESP 16–33; TEMP 98–98.8; O2SAT 90–96
[2016-12-28] MEDS: RESP: ALBUTEROL 2.5 MG/IPRATROPIUM 0.5 MG NEB (SCH) INH ×6 (00:04→21:00)
[2016-12-28] MEDS: CHLORHEXIDINE GLUCONATE 2 % 1 PACK (2 CLOTHS) TOP SCH (04:00)
[2016-12-28 04:14] LABS: HEMATOCRIT 42.8 % (39.0-51.0); MEAN CELL VOLUME 87.4 FL (80.0-100.0); MEAN CORPUSCULAR HEMOGLOBIN 28.7 PG (27.0-34.0); MEAN CORPUSCULAR HGB CONC 32.9 % (32.0-36.0); PLATELET COUNT 226 TH/MM3 (150-450); RED CELL DISTRIBUTION WIDTH 13.9 % (11.6-17.2); REVIEW FLAG FINAL; WHITE BLOOD COUNT 13.7 TH/MM3 (4.0-11.0)
[2016-12-28 04:38] LABS: BICARBONATE 30.1 MEQ/L (21.0-32.0); POTASSIUM 4.1 MEQ/L (3.5-5.1)
[2016-12-28] MEDS: HEPARIN SODIUM - SQ 10,000 UNITS/ML VIAL SQ SCH ×2 (06:54→14:59)
[2016-12-28] MEDS: FAMOTIDINE 20 MG TAB PO SCH ×2 (09:22→20:56)
[2016-12-28] MEDS: DOCUSATE SODIUM 50 MG/SENNA 8.6 MG TAB PO SCH ×2 (09:22→20:56)
[2016-12-28] MEDS: methylPREDNISolone SOD SUCC 125 MG/2 ML VIAL IV PUSH SCH ×2 (09:22→20:56)
--- NOTE | 2016-12-28 10:04 | HHI.HCPN ---
Reason for visit a. To assist with evaluation and management of symptoms including: dyspnea b. To assist medical decision maker(s) with: better understanding of current medical conditions; weighing benefits/burdens of medical treatment options; making medical treatment decisions. . Subjective/Interval History Pt is on paritial rebreather at 12 L. There is leukocytosis. He remains alert. Hearing impaired and communicate via writing. No change in goals of care. Pt and family aware he may decompensate. Discussed with them about challenges he face, quality of life, code status. Hospice was also discussed. Plan is this: If pt decompensates and require intubation, and resucitation, he wants it. Pt state if he is not able to get off ventilator in 14 days, he is amenable get hospice on and transition to comfort meds. Pt's daughter is supportive but realistic, she understands pt 's functional status will decline. Continue medical management. Pt not ready to transition to comfort measures. Family/friend interactions Spend extensive time speaking with daughter this morning about pt's condition, COPD, the challenges he faces, intubation, code status. Also discussed option of hospice and comfort measures. Daughter wants some private time with father today to speak to him again about code status, option of comfort care etc. She ask me to follow up with them at 1 pm. I followed up at 1 pm, and met with both daughter and pt. Please see above. Advance Directives Living Will: Completed, but not made available Health Care Surrogate: Completed, but not made available Durable Power of Bookmaker'S Clerk: Completed, but not made available Advance Directive Specifics Date completed: No completed living will. Patient has completed a verbal health care surrogate designation on 12/26/16. He wants his daughter to serve as surrogate. . . Health Care Surrogate(s): He has designated his daughter -- Estefany Ayala. . . Documented care wishes: No written documentation of health care wishes. . Objective Vital Signs Date Time Temp Pulse Resp B/P (MAP) Pulse Ox O2 Delivery O2 Flow Rate FiO2 12/28/16 07:25 92 Partial Rebreather 12.00 12/28/16 06:00 99 12/28/16 04:00 98.4 100 18 125/60 (81) 92 12/28/16 04:00 100 12/28/16 02:00 94 12/28/16 00:00 98.3 93 16 128/69 (88) 96 12/28/16 00:00 93 12/27/16 22:00 100 12/27/16 20:12 94 Partial Rebreather 12.00 12/27/16 20:00 99.0 101 18 133/66 (88) 97 12/27/16 20:00 101 12/27/16 19:00 Partial Non-Rebreather 12.00 50 12/27/16 18:00 91 12/27/16 16:00 91 12/27/16 16:00 98.0 96 19 118/63 (81) 97 12/27/16 14:00 91 12/27/16 12:00 98.5 92 21 129/62 (84) 100 12/27/16 12:00 91 12/27/16 10:00 91 Intake & Output 12/28/16 12/28/16 07:00 19:00 # Voids 2 # Bowel Movements 0 Physical Exam CONSTITUTIONAL/GENERAL: This is a thin, pale male in no distress in an MICU bed. He is very hard of hearing making for challenging communication. TUBES/LINES/DRAINS: Peripehral IV; non-rebreather mask; condom catheter. SKIN: No jaundice, rashes, or lesions. No wounds seen anteriorly. Skin temperature appropriate. Not diaphoretic. EYES: Pupils equal and round. Extraocular motions intact. No scleral icterus. No injection or drainage. Fundi not examined. ENT: VERY hard of hearing. hearing aid in right ear. Nose without bleeding or purulent drainage. Throat without visible erythema, exudates, masses, or lesions. NECK: Trachea midline. Supple, nontender. CARDIOVASCULAR: Regular rate and rhythm without murmurs, gallops, or rubs. No JVD. RESPIRATORY/CHEST: Symmetric, unlabored respirations. Breath sounds equal bilaterally but quite diminished. . No wheezing. Scattered faint ronchi. Periodic wet sounding cough. GASTROINTESTINAL: Abdomen soft, non-tender, nondistended. No hepato-splenomegaly , or palpable masses. No guarding. Bowel sounds present. GENITOURINARY: Without palpable bladder distension. Condom catheter in place. MUSCULOSKELETAL: Extremities without clubbing, cyanosis, or edema... No mottling . LYMPHATICS: not examined NEUROLOGICAL: Awake and alert. Motor and sensory grossly within normal limits. Follows commands. Cognitively sharp. Moves all extremities. PSYCHIATRIC: No obvious anxiety/depression. No apparent hallucinations or other psychotic thought process. . Diagnostic Tests Laboratory Laboratory Tests Test 12/25/16 12:10 12/25/16 12:28 12/25/16 14:21 12/25/16 14:30 White Blood Count 17.8 TH/MM3 (4.0-11.0) Red Blood Count 5.24 MIL/MM3 (4.50-5.90) Hemoglobin 15.4 GM/DL (13.0-17.0) Hematocrit 46.0 % (39.0-51.0) Mean Corpuscular Volume 87.7 FL (80.0-100.0) Mean Corpuscular Hemoglobin 29.3 PG (27.0-34.0) Mean Corpuscular Hemoglobin Concent 33.5 % (32.0-36.0) Red Cell Distribution Width 13.7 % (11.6-17.2) Platelet Count 299 TH/MM3 (150-450) Mean Platelet Volume 7.4 FL (7.0-11.0) Neutrophils (%) (Auto) 81.7 % (16.0-70.0) Lymphocytes (%) (Auto) 11.7 % (9.0-44.0) Monocytes (%) (Auto) 5.5 % (0.0-8.0) Eosinophils (%) (Auto) 0.7 % (0.0-4.0) Basophils (%) (Auto) 0.4 % (0.0-2.0) Neutrophils # (Auto) 14.5 TH/MM3 (1.8-7.7) Lymphocytes # (Auto) 2.1 TH/MM3 (1.0-4.8) Monocytes # (Auto) 1.0 TH/MM3 (0-0.9) Eosinophils # (Auto) 0.1 TH/MM3 (0-0.4) Basophils # (Auto) 0.1 TH/MM3 (0-0.2) CBC Comment DIFF FINAL Differential Comment Blood Urea Nitrogen 24 MG/DL (7-18) Creatinine 1.06 MG/DL (0.60-1.30) Random Glucose 124 MG/DL (74-106) Total Protein 7.9 GM/DL (6.4-8.2) Albumin 3.1 GM/DL (3.4-5.0) Calcium Level 8.7 MG/DL (8.5-10.1) Alkaline Phosphatase 71 U/L (45-117) Aspartate Amino Transf (AST/SGOT) 11 U/L (15-37) Alanine Aminotransferase (ALT/SGPT) 13 U/L (12-78) Total Bilirubin 1.4 MG/DL (0.2-1.0) Sodium Level 139 MEQ/L (136-145) Potassium Level 3.0 MEQ/L (3.5-5.1) Chloride Level 99 MEQ/L (98-107) Carbon Dioxide Level 30.2 MEQ/L (21.0-32.0) Anion Gap 10 MEQ/L (5-15) Estimat Glomerular Filtration Rate 67 ML/MIN (>89) Lactic Acid Level 2.3 mmol/L (0.4-2.0) 1.1 mmol/L (0.4-2.0) Blood Gas Puncture Site RT RADIAL Blood Gas Patient Temperature 98.6 Blood Gas HCO3 28 mmol/L (22-26) Blood Gas Base Excess 4.5 mmol/L (-2-2) Blood Gas Oxygen Saturation 95 % (90-100) Arterial Blood pH 7.47 (7.380-7.420) Arterial Blood Partial Pressure CO2 39 mmHg (38-42) Arterial Blood Partial Pressure O2 93 mmHG (61-120) Arterial Blood Oxygen Content 20.5 Vol % (12.0-20.0) Arterial Blood Carboxyhemoglobin 2.0 % (0-4) Arterial Blood Methemoglobin 0.5 % (0-2) Blood Gas Hemoglobin 15.3 G/DL (12.0-16.0) Oxygen Delivery Device BiPAP Blood Gas Ventilator Setting IPAP10/ EPAP5 Blood Gas Inspired Oxygen 100 % B-Type Natriuretic Peptide 61 PG/ML (0-100) Test 12/25/16 14:52 12/25/16 15:59 12/26/16 00:15 12/26/16 05:30 Nasal Screen MRSA (PCR) MRSA NOT DETECTED (NOT Lactic Acid Level 0.9 mmol/L (0.4-2.0) Urine Color YELLOW (YELLW/STRAW) Urine Turbidity HAZY (CLEAR) Urine pH 5.5 (5.0-8.5) Urine Specific Colp 1.024 (1.002-1.035) Urine Protein TRACE mg/dL (NEG-TRACE) Urine Glucose (UA) NEG mg/dL (NEG) Urine Ketones 10 mg/dL (NEG) Urine Occult Blood NEG (NEG) Urine Nitrite NEG (NEG) Urine Bilirubin NEG (NEG) Urine Urobilinogen LESS THAN 2.0 MG/DL (LESS Urine Leukocyte Esterase TRACE (NEG) Urine RBC 1 /hpf (0-3) Urine WBC 5 /hpf (0-5) Urine Squamous Epithelial Cells <1 /hpf (0-5) Urine Bacteria OCC /hpf (NONE) Urine Hyaline Casts 1 /lpf (RARE) Urine Mucus FEW /lpf (OCC) Microscopic Urinalysis Comment CULT NOT INDICATED White Blood Count 9.8 TH/MM3 (4.0-11.0) Red Blood Count 4.90 MIL/MM3 (4.50-5.90) Hemoglobin 14.4 GM/DL (13.0-17.0) Hematocrit 42.8 % (39.0-51.0) Mean Corpuscular Volume 87.4 FL (80.0-100.0) Mean Corpuscular Hemoglobin 29.4 PG (27.0-34.0) Mean Corpuscular Hemoglobin Concent 33.6 % (32.0-36.0) Red Cell Distribution Width 13.8 % (11.6-17.2) Platelet Count 241 TH/MM3 (150-450) Mean Platelet Volume 7.4 FL (7.0-11.0) Blood Urea Nitrogen 28 MG/DL (7-18) Creatinine 0.92 MG/DL (0.60-1.30) Random Glucose 156 MG/DL (74-106) Calcium Level 8.6 MG/DL (8.5-10.1) Sodium Level 139 MEQ/L (136-145) Potassium Level 4.1 MEQ/L (3.5-5.1) Chloride Level 103 MEQ/L (98-107) Carbon Dioxide Level 29.4 MEQ/L (21.0-32.0) Anion Gap 7 MEQ/L (5-15) Estimat Glomerular Filtration Rate 79 ML/MIN (>89) Test 12/27/16 05:45 12/28/16 03:52 White Blood Count 12.1 TH/MM3 (4.0-11.0) 13.7 TH/MM3 (4.0-11.0) Red Blood Count 4.78 MIL/MM3 (4.50-5.90) 4.90 MIL/MM3 (4.50-5.90) Hemoglobin 13.5 GM/DL (13.0-17.0) 14.1 GM/DL (13.0-17.0) Hematocrit 41.3 % (39.0-51.0) 42.8 % (39.0-51.0) Mean Corpuscular Volume 86.5 FL (80.0-100.0) 87.4 FL (80.0-100.0) Mean Corpuscular Hemoglobin 28.4 PG (27.0-34.0) 28.7 PG (27.0-34.0) Mean Corpuscular Hemoglobin Concent 32.8 % (32.0-36.0) 32.9 % (32.0-36.0) Red Cell Distribution Width 13.8 % (11.6-17.2) 13.9 % (11.6-17.2) Platelet Count 231 TH/MM3 (150-450) 226 TH/MM3 (150-450) Mean Platelet Volume 7.2 FL (7.0-11.0) 7.2 FL (7.0-11.0) Blood Urea Nitrogen 25 MG/DL (7-18) 27 MG/DL (7-18) Creatinine 0.82 MG/DL (0.60-1.30) 0.84 MG/DL (0.60-1.30) Random Glucose 173 MG/DL (74-106) 127 MG/DL (74-106) Calcium Level 8.6 MG/DL (8.5-10.1) 8.8 MG/DL (8.5-10.1) Sodium Level 141 MEQ/L (136-145) 143 MEQ/L (136-145) Potassium Level 3.8 MEQ/L (3.5-5.1) 4.1 MEQ/L (3.5-5.1) Chloride Level 104 MEQ/L (98-107) 106 MEQ/L (98-107) Carbon Dioxide Level 30.0 MEQ/L (21.0-32.0) 30.1 MEQ/L (21.0-32.0) Anion Gap 7 MEQ/L (5-15) 7 MEQ/L (5-15) Estimat Glomerular Filtration Rate 90 ML/MIN (>89) 87 ML/MIN (>89) Result Diagram: 12/28/16 0352 12/28/16 0352 Microbiology Microbiology Date/Time Source Procedure Growth Status 12/25/16 12:10 Blood Line Aerobic Blood Culture - Preliminary NO GROWTH IN 2 DAYS Resulted 12/25/16 12:10 Blood Line Anaerobic Blood Culture - Preliminary NO GROWTH IN 2 DAYS Resulted 12/25/16 12:05 Blood Line Aerobic Blood Culture - Preliminary NO GROWTH IN 2 DAYS Resulted 12/25/16 12:05 Blood Line Anaerobic Blood Culture - Preliminary NO GROWTH IN 2 DAYS Resulted Assessment and Plan Disease Oriented Problem List: (1) COPD (chronic obstructive pulmonary disease) (2) Pneumonia (3) COPD exacerbation (4) Weight loss (5) Hard of hearing (6) Coronary artery disease (7) Cardiac defibrillator in place Comment: Patient has never experienced a shock from his AICD. . (8) BPH (benign prostatic hyperplasia) Symptom Scale: (1) Dyspnea 0-10 Scale: 0 Comment: Dyspnea probably secondary to COPD exacerbation and/or pneumonia. Dyspnea controlled at rest on high flow 02, nebs, iv antibiotics, steroids. . (2) Pain 0-10 Scale: 0 Comment: Frequently complains of back pain which has been present for many years. No complaints at this time. . . (3) Weight loss 0-10 Scale: Unable to quantify (Patient estimates he has lost about 20 lbs in the last year or so. ) Pertinent Non-Medical Issues Psychosocial: Normally lives alone, drives, ambulates without assistive device. May be getting more difficult for him to live independently. Spiritual: Sabianism -- need to evaluate further. Legal: No known written living will at this time.. Has verbally stated he wants his daughter to serve as health care surrogate (he does not want his son making decision). Ethical issues impacting care: No ethical issues impacting care at this time. . Important Contacts * Estefany Ayala (daughter and health care surrogate) [phone] * Patient's son is homeless -- no contact info. . . Prognosis Patient had been living independently up until this hospitalization. He has not had a history of hospitalizations for his breathing problems. He has never been intubated. He is O2 dependent and have been losing wt. I suspect his given his wt loss is contributed by his COPD, as daughter states he has been eating. I suspect should he survive current hospitalization, it will be repeated hospitalization for him for dyspnea. He is at risk of sudden decline, setback and . Prognosis is critical and guarded. He continues to need high flow O2 and at risk of decompensation. . Code Status: Full Code Plan == Code Status: FULL CODE. == Decision making: Patient is currently capacitated to make his own health care decisions. Should he become incapacitated, he would want his daughter -- Estefany Ayala -- to make those decisions for him. I presented options to him on paper in large font. He selected his daughter consistently. This was witnessed by the nursing staff (Lorie). The patient has specifically stated that he does not want his son to serve as surrogate. == Goals of medical treatment: Spend extensive time today speaking with daughter this morning about pt's condition, COPD, the challenges he faces, intubation, code status. Also discussed option of hospice and comfort measures. I followed up today in the afternoon at 1:00 with patient and daughter. Plan is this: If pt decompensates and require intubation, and resucitation, he wants it. Pt state if he is not able to get off ventilator in 14 days, he is amenable get hospice on and transition to comfort measures. Pt's daughter is supportive but realistic, she understands pt 's functional status will decline. Continue medical management. Pt not ready to transition to comfort measures. == Palliative care symptoms. * Pain: Patient has a history of years of back pain. Though he frequently complains of back pain (per daughter) he rarely takes any analgesics. No other pain syndromes known. * Dyspnea: Currently comfortable at rest on high flow 02. Patient's dyspnea likely due to COPD exacerbation and/or pneumonia. Nebulizers, antibiotics, and steroids under way. No further recommendations at this time. * Anxiety: Does not appear to be an issue. * Depression: Does not appear to be an issue * Poor appetite/Wt loss: Patient complains he does not have much of an appetite and that he has lost about 20 lbs over the past year or so. Unclear is this is because of illness or not having the energy to shop and prepare meals. Will need to monitor. Albumin does not suggest longterm malnutrition. Will watch food consumption during hospitalization to see if he eats well and food is brought to him. We will probably see increased appetite and weight gain on steroids. * Bowel activity: Hx of intermittent constipation per daughter. Bowels began moving 12/27/16 with start of bowel protocol. == Communication: Though it is time consuming, it is best for important communication to write things down so the patient can read them and then respond verbally. == Disposition: Patient is likely to require a period of rehab prior to returning to independent living (if he is ever able to return to independent living). I have indicate to patient possibility of not doing well in rehab. Again emphasize high risk of sudden decompensation and decline with patients. == Patient's regular school business administrator is Dr. Ponce if a cardiology consultation is ever needed. Dr. Gastelum is the patient's primary care physician. == Palliative care will continue to follow to assist with symptom management and further clarify goals of medical treatment as the clinical course evolves. I anticipate goals likely will not change unless there is another sudden decline. . Time Spent Total Floor Time (mins): 45 >50% Counseling/Coord of Care: Yes Attestation To help prompt me to consider important information that might be impacting today's encounter and assessment, information from prior notes written by myself or my colleagues may have been "brought forward" into today's note. My signature on this note, however, is an attestation that I personally performed the exam, history, and/or decision-making noted today, and, unless otherwise indicated, the interactions with patient, family, and staff as well as the review of records all occurred today. I also attest that the listed assessment and stated plan reflect my best clinical judgment today based on the combination of historical information, prior notes, and today's exam/ interactions. When time spent is documented, it refers only to time spent today by the signer, or if indicated, combined time spent today by collaborating physician/nurse practitioner. Sang Gross MD Dec 28, 2016 10:04
[2016-12-28] MEDS: LEVOFLOXACIN 750 MG PREMIX INJ 150 ML IV SCH (11:53)
--- NOTE | 2016-12-28 19:10 | HHI.PR ---
Subjective Remarks Clinically still stable but on nonrebreather mask, they were not able to wean off the oxygen to nasal cannula However he is awake alert pleasant, he is hard hearing so it's difficult to communicate much with him, his daughter was at the bedside I again discussed with her in brief advanced directive, there is still on the same decision with aggressive treatment at this point including intubation, she is waiting on her brother also to get involved in decision-making Objective Vitals Vital Signs Date Time Temp Pulse Resp B/P (MAP) Pulse Ox O2 Delivery O2 Flow Rate FiO2 12/28/16 18:00 96 12/28/16 16:00 100 12/28/16 16:00 98.1 100 25 121/65 (83) 92 12/28/16 14:00 114 12/28/16 12:00 98.8 100 24 128/71 (90) 91 12/28/16 12:00 100 12/28/16 10:00 100 12/28/16 08:00 101 12/28/16 08:00 98.0 101 33 114/62 (79) 91 12/28/16 07:25 92 Partial Rebreather 12.00 12/28/16 07:00 93 Partial Non-Rebreather 12.00 12/28/16 06:00 99 12/28/16 04:00 98.4 100 18 125/60 (81) 92 12/28/16 04:00 100 12/28/16 02:00 94 12/28/16 00:00 98.3 93 16 128/69 (88) 96 12/28/16 00:00 93 12/27/16 22:00 100 12/27/16 20:12 94 Partial Rebreather 12.00 12/27/16 20:00 99.0 101 18 133/66 (88) 97 12/27/16 20:00 101 I/O 12/27/16 12/27/16 12/27/16 12/28/16 12/28/16 12/28/16 07:00 15:00 23:00 07:00 15:00 23:00 Intake Total 120 ml 0 ml 496 ml 360 ml Output Total 100 ml Balance 120 ml 0 ml 496 ml 260 ml Intake Oral 120 ml 0 ml 240 ml 360 ml IV Total 0 ml 256 ml Output Urine Total 100 ml # Voids 1 0 3 2 3 # Bowel Movements 0 0 4 0 1 Result Diagram: 12/28/16 0352 12/28/16 0352 Objective Remarks GENERAL: This is a frail elderly man on nonrebreather mask, he is hard hearing SKIN: No rashes, warm and dry HEAD: Atraumatic. Normocephalic. EYES: Pupils equal round and reactive. Extraocular motions intact. No scleral icterus. ENT: Nose without bleeding, or drainage, Airway patent. NECK: Trachea midline. Supple CARDIOVASCULAR: Regular tachycardia without murmurs, gallops, or rubs. RESPIRATORY: b/l crackles GASTROINTESTINAL: Abdomen soft, non-tender, nondistended. Positive bowel sounds MUSCULOSKELETAL: Extremities without clubbing, cyanosis, or edema. Pedal pulses appreciated NEUROLOGICAL: Awake and alert. Hard hearing Moves all extremity. Normal speech.no focal neurological deficit A/P Assessment and Plan 12/28: Continue current management, nonrebreather mask, full code aggressive treatment including intubation per the daughter who is the surrogate, awaiting the brother to get involved in decision making as per the daughter 81yM with o2 dependent copd, COPD exacerbation, community acquired LLL pneumonia, and acute hypoxic respiratory failure. Assessment COPD Exacerbation LLL pneumonia Lactic Acidosis Possible sepsis Dehydration looked clinically Plan: Appreciated palliative care consult, I personally discussed with the daughter and she confirmed wanting aggressive treatment including intubation at this point Chest x-ray reviewed by me showed bibasilar airspace disease Status post half liter normal saline at 100 cc/h and monitor Nonrebreather mask O2, DuoNeb, Solu-Medrol, Levaquin Appreciate refused BiPAP Follow lactic acid Attempted to address advanced directive with the patient however that was extremely difficult and eventually he refused to make a decision DIOGO, SAMYs, Adrienne Aviles MD Dec 28, 2016 19:10
[2016-12-29] VITALS (20 sets, daily range): BP systolic 115–129; BP diastolic 61–79; PULSE 91–121; RESP 16–38; TEMP 98.1–98.7; O2SAT 91–98
[2016-12-29] MEDS: RESP: ALBUTEROL 2.5 MG/IPRATROPIUM 0.5 MG NEB (SCH) INH ×4 (03:00→11:47)
[2016-12-29] MEDS: CHLORHEXIDINE GLUCONATE 2 % 1 PACK (2 CLOTHS) TOP SCH (04:00)
[2016-12-29 04:37] LABS: HEMATOCRIT 44.6 % (39.0-51.0); MEAN CELL VOLUME 87.3 FL (80.0-100.0); MEAN CORPUSCULAR HEMOGLOBIN 28.2 PG (27.0-34.0); MEAN CORPUSCULAR HGB CONC 32.3 % (32.0-36.0); PLATELET COUNT 197 TH/MM3 (150-450); RED BLOOD COUNT 5.11 MIL/MM3 (4.50-5.90); RED CELL DISTRIBUTION WIDTH 14.1 % (11.6-17.2); REVIEW FLAG FINAL; WHITE BLOOD COUNT 11.9 TH/MM3 (4.0-11.0)
[2016-12-29 05:03] LABS: BICARBONATE 30.1 MEQ/L (21.0-32.0); POTASSIUM 4.5 MEQ/L (3.5-5.1)
[2016-12-29] MEDS: HEPARIN SODIUM - SQ 10,000 UNITS/ML VIAL SQ SCH ×4 (05:43→23:23)
[2016-12-29] MEDS: DOCUSATE SODIUM 50 MG/SENNA 8.6 MG TAB PO SCH ×2 (08:59→20:34)
[2016-12-29] MEDS: FAMOTIDINE 20 MG TAB PO SCH ×2 (08:59→20:34)
[2016-12-29] MEDS: methylPREDNISolone SOD SUCC 125 MG/2 ML VIAL IV PUSH SCH ×2 (09:02→20:34)
--- NOTE | 2016-12-29 10:25 | HHI.PR ---
Subjective Remarks pt sleeping , woke up to rubbing his chest (heard hearing ) pleasant , stable , still on 15 l NRM @87% no f/c d/w nurse , stated respiratory rec lasix , howeevr pt does not have volume overload sings clinicaly and BNP was 62 on the 11 Objective Vitals Vital Signs Date Time Temp Pulse Resp B/P (MAP) Pulse Ox O2 Delivery O2 Flow Rate FiO2 12/29/16 08:46 92 Partial Rebreather 15.00 12/29/16 06:00 102 12/29/16 04:00 106 12/29/16 04:00 98.1 106 17 118/66 (83) 92 12/29/16 02:00 91 12/29/16 00:00 98.4 99 16 115/61 (79) 94 12/29/16 00:00 101 12/28/16 22:00 99 12/28/16 21:00 90 Partial Rebreather 12.00 12/28/16 20:00 101 12/28/16 20:00 98.0 101 18 112/62 (79) 91 12/28/16 19:00 90 Partial Non-Rebreather 12.00 12/28/16 18:00 96 12/28/16 16:00 100 12/28/16 16:00 98.1 100 25 121/65 (83) 92 12/28/16 14:00 114 12/28/16 12:00 98.8 100 24 128/71 (90) 91 12/28/16 12:00 100 I/O 12/28/16 12/28/16 12/28/16 12/29/16 12/29/16 12/29/16 07:00 15:00 23:00 07:00 15:00 23:00 Intake Total 360 ml 60 ml Output Total 100 ml 100 ml Balance 260 ml -40 ml Intake Oral 360 ml 60 ml Output Urine Total 100 ml 100 ml # Voids 2 3 # Bowel Movements 0 1 0 Result Diagram: 12/29/1642112/29/16421 Objective Remarks GENERAL: This is a frail elderly man on nonrebreather mask, he is hard hearing SKIN: No rashes, warm and dry HEAD: Atraumatic. Normocephalic. EYES: Pupils equal round and reactive. Extraocular motions intact. No scleral icterus. ENT: Nose without bleeding, or drainage, Airway patent. NECK: Trachea midline. Supple CARDIOVASCULAR: Regular tachycardia without murmurs, gallops, or rubs. RESPIRATORY: widspread corase cracles b/l , GASTROINTESTINAL: Abdomen soft, non-tender, nondistended. Positive bowel sounds MUSCULOSKELETAL: Extremities without clubbing, cyanosis, or edema. Pedal pulses appreciated NEUROLOGICAL: Awake and alert. Hard hearing Moves all extremity. Normal speech.no focal neurological deficit A/P Assessment and Plan 12/28: Continue current management, nonrebreather mask, full code aggressive treatment including intubation per the daughter who is the surrogate, awaiting the brother to get involved in decision making as per the daughter 12/29: not able to wean down o2 , it is inc actually , d/w nurse , stated respiratory rec lasix , however pt does not have volume overload sings clinically and BNP was 62 on the repeat bnp, cxr , continue 02 and duoneb , per family and pt still want agressive tx including intubation 81yM with o2 dependent copd, COPD exacerbation, community acquired LLL pneumonia, and acute hypoxic respiratory failure. Assessment COPD Exacerbation LLL pneumonia Lactic Acidosis Possible sepsis Dehydration looked clinically Plan: Appreciated palliative care consult, I personally discussed with the daughter and she confirmed wanting aggressive treatment including intubation at this point Chest x-ray reviewed by me showed bibasilar airspace disease Status post half liter normal saline at 100 cc/h and monitor Nonrebreather mask O2, DuoNeb, Solu-Medrol, Levaquin Appreciate refused BiPAP Follow lactic acid Attempted to address advanced directive with the patient however that was extremely difficult and eventually he refused to make a decision DIOGO, SCDs, Adrienne Aviles MD Dec 29, 2016 10:25
--- NOTE | 2016-12-29 11:24 | RADRPT ---
EXAM DATE/TIME: 12/29/2016 10:48 [facility] COMPARISON: CHEST SINGLE AP, December 26, 2016, 5:26. INDICATIONS : Assess for congestion or lung edema MEDICAL HISTORY : Hypercholesterolemia. Hypertension Chronic obstructive pulmonary disease. Coronary artery disease , enlarged prostate SURGICAL HISTORY : Pacemaker. ENCOUNTER: Initial ACUITY: 4 - 6 days PAIN SCORE: 0/10 LOCATION: Bilateral chest FINDINGS: Pacer in good position. Patchy airspace disease in both lungs improved in the interval. Cardiac silhouette appropriate in size. CONCLUSION: Interval improvement Pacer on the left. Russell Alfredo MD FACR on December 29, 2016 at 11:22 Board Certified Radiologist. This report was verified electronically.
[2016-12-29] MEDS: LEVOFLOXACIN 750 MG PREMIX INJ 150 ML IV SCH (12:18)
--- NOTE | 2016-12-29 15:48 | RADRPT ---
EXAM DATE/TIME: 12/29/2016 14:36 [place] COMPARISON: No previous studies available for comparison. INDICATIONS : Bilateral leg swelling. MEDICAL HISTORY : Congestive heart failure. Syncope. CAD. Hypertension. COPD. Emphysema. Dyspnea. GERD. SURGICAL HISTORY : Tonsillectomy. Eye surgery. Pacemaker. Left rotator cuff repair. ENCOUNTER: Initial ACUITY: 1 day PAIN SCORE: 0/10 LOCATION: Bilateral leg. TECHNIQUE: Venous ultrasound of the left and right leg was performed from the inguinal ligament to the proximal calf. Real-time, color Doppler and spectral tracing, compression and augmentation techniques were us ed. FINDINGS: RIGHT LEG: There is normal compressibility of the deep venous system from the inguinal region to the proximal ca lf. No echogenic clot is seen in the lumen of the common femoral, femoral, popliteal, and posterior tibial veins. There is a normal response of the venous system to proximal and distal augmentation an d respiration. LEFT LEG: There is normal compressibility of the deep venous system from the inguinal region to the proximal ca lf. No echogenic clot is seen in the lumen of the common femoral, femoral, popliteal, and posterior tibial veins. There is a normal response of the venous system to proximal and distal augmentation an d respiration. CONCLUSION: Normal examination. Hunter Muñoz MD on December 29, 2016 at 15:46 Board Certified Radiologist. This report was verified electronically.
[2016-12-30] VITALS (14 sets, daily range): BP systolic 104–139; BP diastolic 63–76; PULSE 77–121; RESP 15–28; TEMP 98.1–98.8; O2SAT 89–95
[2016-12-30] MEDS: CHLORHEXIDINE GLUCONATE 2 % 1 PACK (2 CLOTHS) TOP SCH ×2 (04:00→23:39)
[2016-12-30] MEDS: HEPARIN SODIUM - SQ 10,000 UNITS/ML VIAL SQ SCH ×3 (06:22→22:37)
[2016-12-30 06:39] LABS: HEMATOCRIT 44.8 % (39.0-51.0); MEAN CELL VOLUME 87.2 FL (80.0-100.0); MEAN CORPUSCULAR HEMOGLOBIN 28.7 PG (27.0-34.0); MEAN CORPUSCULAR HGB CONC 32.9 % (32.0-36.0); PLATELET COUNT 197 TH/MM3 (150-450); RED BLOOD COUNT 5.14 MIL/MM3 (4.50-5.90); RED CELL DISTRIBUTION WIDTH 13.7 % (11.6-17.2); REVIEW FLAG FINAL
[2016-12-30 06:58] LABS: BICARBONATE 30.6 MEQ/L (21.0-32.0); POTASSIUM 4.7 MEQ/L (3.5-5.1)
--- NOTE | 2016-12-30 08:21 | HHI.PR ---
Subjective Remarks f/u; respiratory failure/COPD exacerbation in no acute distress- however still with some sob and on oxygen via N/C. no fever. denies pain. d/w the RN at the bedside. Objective Vitals Vital Signs Date Time Temp Pulse Resp B/P (MAP) Pulse Ox O2 Delivery O2 Flow Rate FiO2 12/30/16 06:00 84 12/30/16 04:00 98.5 88 17 126/71 (89) 94 12/30/16 04:00 88 12/30/16 02:00 87 12/30/16 00:00 98.4 102 16 128/76 (93) 92 12/30/16 00:00 102 12/29/16 22:00 94 12/29/16 20:00 98.6 101 20 125/75 (92) 91 12/29/16 20:00 101 12/29/16 19:24 92 Partial Rebreather 15.00 12/29/16 19:00 90 Partial Non-Rebreather 12.00 12/29/16 18:00 121 12/29/16 17:00 108 12/29/16 16:00 102 12/29/16 16:00 98.7 102 35 121/73 (89) 91 12/29/16 15:00 108 12/29/16 14:00 113 12/29/16 13:00 114 12/29/16 12:00 98.3 109 38 124/79 (94) 98 12/29/16 12:00 109 12/29/16 11:00 103 12/29/16 10:00 96 12/29/16 09:00 94 12/29/16 08:46 92 Partial Rebreather 15.00 I/O 12/29/16 12/29/16 12/29/16 12/30/16 12/30/16 12/30/16 07:00 15:00 23:00 07:00 15:00 23:00 Intake Total 60 ml 750 ml 80 ml Output Total 100 ml 250 ml 300 ml Balance -40 ml 500 ml -220 ml Intake Oral 60 ml 750 ml 80 ml Output Urine Total 100 ml 250 ml 300 ml # Bowel Movements 0 0 Result Diagram: 12/30/16 0543 12/30/16 0543 Imaging Last Impressions Lower Extremity Ultrasound 12/29/16 0000 Signed Impressions: Service Date/Time: Thursday, December 29, 2016 14:36 - CONCLUSION: Normal examination. Hunter Muñoz MD Chest X-Ray 12/29/16 0000 Signed Impressions: Service Date/Time: Thursday, December 29, 2016 10:48 - CONCLUSION: Interval improvement Pacer on the left. Russell Alfredo MD FACR Objective Remarks GENERAL: This is a well-nourished, well-developed patient, in no apparent distress. CARDIOVASCULAR: Regular rate and regular rhythm without murmurs, gallops, or rubs. RESPIRATORY: bilateral air entry present- no wheezing. GASTROINTESTINAL: Abdomen soft, non-tender, nondistended. Normal, active bowel sounds MUSCULOSKELETAL: Extremities without clubbing, cyanosis, or edema. NEURO: Alert & Oriented x4 to person, place, time, situation. Moves all ext x4 Medications and IVs Current Medications Sodium Chloride (NS Flush) 2 ml UNSCH PRN IVF FLUSH AFTER USING IV ACCESS; Start 12/25/16 at 12:15 Methylprednisolone Sodium Succinate (SoluMEDROL INJ) 125 mg ONCE ONCE IVP ; Start 12/25/16 at 12:15; Stop 12/25/16 at 12:16; Status Cancel Albuterol/ Ipratropium (Duoneb Neb) 1 ampule Q15M INH Last administered on 12/25 12:25; Start 12/25/16 at 12:15; Stop 12/25/16 at 12:46; Status DC Levofloxacin/ Dextrose 150 ml @ 100 mls/hr ONCE STAT IV Last administered on 12/25/16 12:55; Start 12/25/16 at 12:40; Stop 12/25/16 at 14:09; Status DC Potassium Chloride 100 ml @ 50 mls/hr BOLUS ONCE IV Last administered on 12/25 14:35; Start 12/25/16 at 13:30; Stop 12/25/16 at 15:29; Status DC Levofloxacin/ Dextrose 150 ml @ 100 mls/hr Q24H IV Last administered on 12:18; Start 12/26/16 at 12:00 Magnesium Oxide (Mag-Ox) 800 mg UNSCH PRN PO For Magnesium 1.2 - 1.6 mg/dL; Start 12/25/16 at 15:00 Magnesium Sulfate 4 gm/Sodium Chloride 100 ml @ 50 mls/hr UNSCH PRN IV For Magnesium 0.9 - 1.1 mg/dL; Start 12/25/16 at 15:00 Magnesium Sulfate 2 gm/Sodium Chloride 100 ml @ 50 mls/hr UNSCH PRN IV For Magnesium 1.2 - 1.6 mg/dL; Start 12/25/16 at 15:00 Potassium Chloride 100 ml @ 50 mls/hr Q2H PRN IV For Potassium 2.8 - 3.2 mEq/ L Last administered on 12/25/16 20:56; Start 12/25/16 at 15:00 Potassium Chloride 100 ml @ 50 mls/hr Q2H PRN IV For Potassium 3.3 - 3.5 mEq/L ; Start 12/25/16 at 15:00 Potassium Chloride 100 ml @ 50 mls/hr Q2H PRN IV For Potassium 2.8 - 3.2 mEq/L ; Start 12/25/16 at 15:00 Potassium Chloride 100 ml @ 25 mls/hr UNSCH PRN IV For Potassium 3.3 - 3.5 mEq /L; Start 12/25/16 at 15:00 Potassium Phosphate (K-Phos) 2,000 mg Q4H PRN PO For Phosphorus < 2.5 mg/dL; Start 12/25/16 at 15:00 Potassium Phosphate (K-Phos) 2,000 mg UNSCH PRN PO/TUBE SEE LABEL COMMENTS; Start 12/25/16 at 15:00 Potassium Phosphate 30 mmol/ Sodium Chloride 260 ml @ 42 mls/hr UNSCH PRN IV SEE LABEL COMMENTS; Start 12/25/16 at 15:00 Sodium Phosphate 30 mmol/Sodium Chloride 250 ml @ 42 mls/hr UNSCH PRN IV For Phosphorus < 2.5 mg/dL; Start 12/25/16 at 15:00 Methylprednisolone Sodium Succinate (SoluMEDROL INJ) 60 mg Q12HR IV PUSH Last administered on 12/29/16 20:34; Start 12/25/16 at 21:00 Albuterol/ Ipratropium (Duoneb Neb) 1 ampule Q2HR NEB PRN INH WHEEZING Last administered on 12/29/16 16:28; Start 12/25/16 at 15:00 Albuterol/ Ipratropium (Duoneb Neb) 1 ampule Q4HR NEB INH Last administered on 12/29/16 11:47; Start 12/25/16 at 16:00; Stop 12/29/16 at 15:59; Status DC Acetaminophen (Tylenol) 650 mg Q6H PRN PO PAIN 1-10 AND/OR FEVER >101F; Start 12/25/16 at 15:00 Famotidine (Pepcid) 20 mg Q12HR PO Last administered on 12/29/16 20:34; Start 12/25/16 at 21:00 Ondansetron HCl (Zofran Inj) 4 mg Q6H PRN IV PUSH NAUSEA OR VOMITING; Start 03/02 at 15:00 Heparin Sodium (Porcine) (Heparin Inj) 5,000 units Q8H SQ Last administered on 12/30/16 06:22; Start 12/25/16 at 15:00 Miscellaneous Information 1 Q361D XX Last administered on 12/25/16 15:00; Start 12/25/16 at 15:00 Chlorhexidine Gluconate (Chlorhexidine 2% Cloth) 3 pack Taper DAILY@04 TOP Last administered on 12/29/16 04:00; Start 12/26/16 at 04:00; Stop 12/22/17 at 03:59 Chlorhexidine Gluconate (Chlorhexidine 2% Cloth) 3 pack UNSCH PRN TOP HYGIENIC CARE; Start 12/25/16 at 15:00 Senna/Docusate Sodium (Agata-Colace) 1 tab BID PO Last administered on 20:34; Start 12/25/16 at 21:00 Sodium Chloride 1,000 ml @ 100 mls/hr Q10H IV Last administered on 12/26/16 11:05; Start 12/26/16 at 10:15; Stop 12/26/16 at 15:14; Status DC Sennosides (Senokot) 8.6 mg DAILY PRN PO CONSTIPATION; Start 12/26/16 at 15:15 A/P Assessment and Plan A/P - acute hypoxemic respiratory failure / COPD Exacerbation/ LLL pneumonia keep on oxygen to keep O2 sat > 90%- continue neb treatment; scheduled and prn - will add spiriva- continue IV steroid and antibiotic- will consult pulmonary palliative care f/u appreciated and the goals of care remain aggressive at this time. - dyslipidemia; resume statin -hypertension; BP stable- hold BP meds for now -DVT prophylaxis with subq Heparin -continue PT will keep in ICU for now for close monitoring- pending pulmonary evaluation. d/w the RN. Dionisio Garcia MD Dec 30, 2016 08:21
[2016-12-30] MEDS: FAMOTIDINE 20 MG TAB PO SCH ×2 (08:37→19:44)
[2016-12-30] MEDS: TAMSULOSIN HCL 0.4 MG CAP PO SCH (08:37)
[2016-12-30] MEDS: DOCUSATE SODIUM 50 MG/SENNA 8.6 MG TAB PO SCH ×2 (08:37→19:44)
[2016-12-30] MEDS: methylPREDNISolone SOD SUCC 125 MG/2 ML VIAL IV PUSH SCH ×2 (08:37→19:44)
[2016-12-30] MEDS ORDERED: FINASTERIDE 0.5 MG PO SCH (09:00)
[2016-12-30] MEDS: PRAVASTATIN SOD 20 MG TAB PO SCH (09:56)
[2016-12-30] MEDS: TIOTROPIUM BROMIDE 18 MCG INH INH SCH (10:23)
[2016-12-30] MEDS: RESP: ALBUTEROL 2.5 MG/IPRATROPIUM 0.5 MG NEB (SCH) NEB ×3 (12:29→23:44)
[2016-12-30] MEDS: LEVOFLOXACIN 750 MG PREMIX INJ 150 ML IV SCH (12:38)
--- NOTE | 2016-12-30 14:48 | MB ---
cc: CLINT DRUMMOND DATE OF CONSULTATION: 12/30/2016. REASON FOR CONSULTATION: Pulmonary management. REQUESTING PHYSICIAN: Dr. Garcia. HISTORY OF PRESENT ILLNESS: Mr. Ayala is an 81-year-old male with history of COPD. He uses oxygen 3 liters nasal cannula. He has been having increased shortness of breath for about one week or so. The patient says that he has tried to conserve his oxygen and he was not using oxygen. He was brought to the hospital. He was found to have shortness of breath. He was found to be hypoxic. He was treated with BiPAP with nonrebreather mask and now is weaned down to 6 liters nasal cannula. He has mild shortness breath. He has congestion. No chest pain. No nausea or vomiting. PAST MEDICAL HISTORY: His past medical history is significant for: 1. COPD, oxygen-dependent. 2. History of Gastroesophageal reflux disease (GERD). 3. Pacemaker placement. 4. History of retinal repair. MEDICATIONS: He is currently takin. Albuterol and Atrovent nebulizer treatment. 2. Spiriva once a day. 3. Flomax 0.4 milligrams a day. 4. Levaquin IV. 5. Solu-Medrol 60 milligrams q. 12 hours. ALLERGIES: 1. CODEINE. SOCIAL HISTORY: He is a . He has a history of smoking, which he quit many yrs ago. 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 FAMILY HISTORY: He has two children. His sons live nearby and the daughter lives in [place], [place]. She is here currently at the bedside. REVIEW OF SYSTEMS: As per the daughter, the patient is normally up around and active and is able to walk around and take care of himself. No malignancy. No DVT or pulmonary embolism. PHYSICAL EXAMINATION: GENERAL: An elderly male mild short of breath. VITAL SIGNS: Blood pressure 126/71, heart rate 70, respirations 18, temperature 98.6. HEAD, EYES, EARS, NOSE, THROAT: Pupils are equal and reactive. Oral mucosa and nasal mucosa are normal. NECK: The neck is supple. JVP not raised. CHEST: Air entry equal bilaterally. He has a few rhonchi. CARDIOVASCULAR: S1-S2 normal. ABDOMEN: Abdomen benign. EXTREMITIES: No edema. IMPRESSION: 1. Respiratory failure has improved. 2. COPD exacerbation. 3. Hypertension. 4. History of pacemaker placement. 5. The patient is hard of hearing. PLAN: 1. Will give him aerosol treatment with albuterol and Atrovent. 2. Solu-Medrol IV. 3. Continuous supplemental oxygen 4 to 5 LNC, keep saturation between 88 and 92% . Further treatment will depend on the course in the hospital. Thank you, Dr. Garcia for this consult. MD AMADOR Guerrero/JCJordin /1:25 PM /2:37 PM MTDAnh
[2016-12-31] VITALS (14 sets, daily range): BP systolic 109–128; BP diastolic 64–72; PULSE 85–122; RESP 16–31; TEMP 98.4–98.9; O2SAT 90–95
[2016-12-31] MEDS: RESP: ALBUTEROL 2.5 MG/IPRATROPIUM 0.5 MG NEB (SCH) NEB ×5 (04:00→20:30)
[2016-12-31 04:59] LABS: HEMATOCRIT 45.1 % (39.0-51.0); MEAN CORPUSCULAR HEMOGLOBIN 28.7 PG (27.0-34.0); MEAN CORPUSCULAR HGB CONC 32.6 % (32.0-36.0); PLATELET COUNT 177 TH/MM3 (150-450); RED BLOOD COUNT 5.13 MIL/MM3 (4.50-5.90); RED CELL DISTRIBUTION WIDTH 13.8 % (11.6-17.2); REVIEW FLAG FINAL; WHITE BLOOD COUNT 14.4 TH/MM3 (4.0-11.0)
[2016-12-31 05:26] LABS: BICARBONATE 29.9 MEQ/L (21.0-32.0); POTASSIUM 4.3 MEQ/L (3.5-5.1)
--- NOTE | 2016-12-31 08:20 | HHI.PR ---
Subjective Remarks still on oxygen- with some sob. denies pain. no fever. Objective Vitals Vital Signs Date Time Temp Pulse Resp B/P (MAP) Pulse Ox O2 Delivery O2 Flow Rate FiO2 12/31/16 06:00 85 12/31/16 04:00 91 12/31/16 04:00 98.6 91 16 128/68 (88) 94 12/31/16 02:00 97 12/31/16 00:00 98 12/31/16 00:00 98.8 98 30 118/67 (84) 91 12/30/16 22:00 102 12/30/16 20:00 100 12/30/16 20:00 98.8 100 28 104/71 (82) 89 12/30/16 19:00 93 Nasal Cannula 6.00 12/30/16 18:00 115 12/30/16 16:00 98.1 104 22 112/63 (79) 90 12/30/16 16:00 104 12/30/16 14:00 121 12/30/16 13:38 91 Nasal Cannula 6.00 12/30/16 13:00 93 Nasal Cannula 6.00 12/30/16 12:00 108 12/30/16 12:00 98.6 91 20 117/63 (81) 92 12/30/16 10:00 85 12/30/16 08:48 95 Partial Rebreather I/O 12/30/16 12/30/16 12/30/16 12/31/16 12/31/16 12/31/16 07:00 15:00 23:00 07:00 15:00 23:00 Intake Total 80 ml 150 ml 740 ml 100 ml Output Total 300 ml 450 ml Balance -220 ml 150 ml 740 ml -350 ml Intake Oral 80 ml 590 ml 100 ml IV Total 150 ml 150 ml Output Urine Total 300 ml 450 ml # Voids 4 # Bowel Movements 0 0 Result Diagram: 12/31/1642112/31/16421 Imaging Last Impressions Lower Extremity Ultrasound 12/29/16 0000 Signed Impressions: Service Date/Time: Thursday, December 29, 2016 14:36 - CONCLUSION: Normal examination. Hunter Muñoz MD Chest X-Ray 12/29/16 0000 Signed Impressions: Service Date/Time: Thursday, December 29, 2016 10:48 - CONCLUSION: Interval improvement Pacer on the left. Russell G. Miles, MD FACR Objective Remarks GENERAL: This is a well-nourished, well-developed patient, in no apparent distress. CARDIOVASCULAR: Regular rate and regular rhythm without murmurs, gallops, or rubs. RESPIRATORY: bilateral air entry present- no wheezing. GASTROINTESTINAL: Abdomen soft, non-tender, nondistended. Normal, active bowel sounds MUSCULOSKELETAL: Extremities without clubbing, cyanosis, or edema. NEURO: Alert & Oriented x4 to person, place, time, situation. Moves all ext x4 Medications and IVs Current Medications Sodium Chloride (NS Flush) 2 ml UNSCH PRN IVF FLUSH AFTER USING IV ACCESS; Start 12/25/16 at 12:15 Methylprednisolone Sodium Succinate (SoluMEDROL INJ) 125 mg ONCE ONCE IVP ; Start 12/25/16 at 12:15; Stop 12/25/16 at 12:16; Status Cancel Albuterol/ Ipratropium (Duoneb Neb) 1 ampule Q15M INH Last administered on 12/25 12:25; Start 12/25/16 at 12:15; Stop 12/25/16 at 12:46; Status DC Levofloxacin/ Dextrose 150 ml @ 100 mls/hr ONCE STAT IV Last administered on 12/25/16 12:55; Start 12/25/16 at 12:40; Stop 12/25/16 at 14:09; Status DC Potassium Chloride 100 ml @ 50 mls/hr BOLUS ONCE IV Last administered on 12/25 14:35; Start 12/25/16 at 13:30; Stop 12/25/16 at 15:29; Status DC Levofloxacin/ Dextrose 150 ml @ 100 mls/hr Q24H IV Last administered on t 12:38; Start 12/26/16 at 12:00 Magnesium Oxide (Mag-Ox) 800 mg UNSCH PRN PO For Magnesium 1.2 - 1.6 mg/dL; Start 12/25/16 at 15:00 Magnesium Sulfate 4 gm/Sodium Chloride 100 ml @ 50 mls/hr UNSCH PRN IV For Magnesium 0.9 - 1.1 mg/dL; Start 12/25/16 at 15:00 Magnesium Sulfate 2 gm/Sodium Chloride 100 ml @ 50 mls/hr UNSCH PRN IV For Magnesium 1.2 - 1.6 mg/dL; Start 12/25/16 at 15:00 Potassium Chloride 100 ml @ 50 mls/hr Q2H PRN IV For Potassium 2.8 - 3.2 mEq/ L Last administered on 12/25/16 20:56; Start 12/25/16 at 15:00 Potassium Chloride 100 ml @ 50 mls/hr Q2H PRN IV For Potassium 3.3 - 3.5 mEq/L ; Start 12/25/16 at 15:00 Potassium Chloride 100 ml @ 50 mls/hr Q2H PRN IV For Potassium 2.8 - 3.2 mEq/L ; Start 12/25/16 at 15:00 Potassium Chloride 100 ml @ 25 mls/hr UNSCH PRN IV For Potassium 3.3 - 3.5 mEq /L; Start 12/25/16 at 15:00 Potassium Phosphate (K-Phos) 2,000 mg Q4H PRN PO For Phosphorus < 2.5 mg/dL; Start 12/25/16 at 15:00 Potassium Phosphate (K-Phos) 2,000 mg UNSCH PRN PO/TUBE SEE LABEL COMMENTS; Start 12/25/16 at 15:00 Potassium Phosphate 30 mmol/ Sodium Chloride 260 ml @ 42 mls/hr UNSCH PRN IV SEE LABEL COMMENTS; Start 12/25/16 at 15:00 Sodium Phosphate 30 mmol/Sodium Chloride 250 ml @ 42 mls/hr UNSCH PRN IV For Phosphorus < 2.5 mg/dL; Start 12/25/16 at 15:00 Methylprednisolone Sodium Succinate (SoluMEDROL INJ) 60 mg Q12HR IV PUSH Last administered on 12/30/16 19:44; Start 12/25/16 at 21:00 Albuterol/ Ipratropium (Duoneb Neb) 1 ampule Q2HR NEB PRN INH WHEEZING Last administered on 12/29/16 16:28; Start 12/25/16 at 15:00 Albuterol/ Ipratropium (Duoneb Neb) 1 ampule Q4HR NEB INH Last administered on 12/29/16 11:47; Start 12/25/16 at 16:00; Stop 12/29/16 at 15:59; Status DC Acetaminophen (Tylenol) 650 mg Q6H PRN PO PAIN 1-10 AND/OR FEVER >101F; Start 12/25/16 at 15:00 Famotidine (Pepcid) 20 mg Q12HR PO Last administered on 12/30/16 19:44; Start 12/25/16 at 21:00 Ondansetron HCl (Zofran Inj) 4 mg Q6H PRN IV PUSH NAUSEA OR VOMITING; Start 03/02 at 15:00 Heparin Sodium (Porcine) (Heparin Inj) 5,000 units Q8H SQ Last administered on 12/30/16 22:37; Start 12/25/16 at 15:00 Miscellaneous Information 1 Q361D XX Last administered on 12/25/16 15:00; Start 12/25/16 at 15:00 Chlorhexidine Gluconate (Chlorhexidine 2% Cloth) Taper DAILY@04 TOP Last administered on 12/29/16 04:00; Start 12/26/16 at 04:00; Stop 12/22/17 at 03:59 Chlorhexidine Gluconate (Chlorhexidine 2% Cloth) 3 pack UNSCH PRN TOP HYGIENIC CARE; Start 12/25/16 at 15:00 Senna/Docusate Sodium (Agata-Colace) 1 tab BID PO Last administered on 19:44; Start 12/25/16 at 21:00 Sodium Chloride 1,000 ml @ 100 mls/hr Q10H IV Last administered on 12/26/16 11:05; Start 12/26/16 at 10:15; Stop 12/26/16 at 15:14; Status DC Sennosides (Senokot) 8.6 mg DAILY PRN PO CONSTIPATION; Start 12/26/16 at 15:15 Albuterol/ Ipratropium (Duoneb Neb) 1 ampule Q4HR NEB NEB Last administered on 12/30/16 23:44; Start 12/30/16 at 12:00 Tiotropium [place] (Spiriva Inh) 18 mcg DAILY INH Last administered on 10:23; Start 12/30/16 at 09:00 Tamsulosin HCl (Flomax) 0.4 mg DAILY PO Last administered on 12/30/16 08:37; Start 12/30/16 at 09:00 Patient Own Medication PT OWN MED: PROPE... DAILY PO ; Start 12/30/16 at 09:00; Status Future Hold Pravastatin Sodium (Pravachol) 20 mg DAILY PO Last administered on 12/30/16t 09 :56; Start 12/30/16 at 09:00 A/P Assessment and Plan A/P - acute hypoxemic respiratory failure / COPD Exacerbation/ LLL pneumonia keep on oxygen to keep O2 sat > 90%- continue neb treatment; scheduled and prn - continue spiriva- continue IV steroid and antibiotic- pulmonary consult appreciated. palliative care f/u appreciated and the goals of care remain aggressive at this time. - dyslipidemia; resumed statin -hypertension; BP stable- hold BP meds for now -DVT/GI prophylaxis with subq Heparin and Pepcid -continue PT will keep in ICU for now for close monitoring- Dionisio Garcia MD Dec 31, 2016 08:19
[2016-12-31] MEDS: PRAVASTATIN SOD 20 MG TAB PO SCH (09:00)
[2016-12-31] MEDS: DOCUSATE SODIUM 50 MG/SENNA 8.6 MG TAB PO SCH ×2 (09:00→20:05)
[2016-12-31] MEDS: TAMSULOSIN HCL 0.4 MG CAP PO SCH (09:01)
[2016-12-31] MEDS: FAMOTIDINE 20 MG TAB PO SCH ×2 (09:01→20:05)
[2016-12-31] MEDS: methylPREDNISolone SOD SUCC 125 MG/2 ML VIAL IV PUSH SCH ×2 (09:01→20:05)
[2016-12-31] MEDS: TIOTROPIUM BROMIDE 18 MCG INH INH SCH (10:42)
[2016-12-31] MEDS: LEVOFLOXACIN 750 MG PREMIX INJ 150 ML IV SCH (10:42)
[2016-12-31] MEDS: HEPARIN SODIUM - SQ 10,000 UNITS/ML VIAL SQ SCH ×3 (10:43→22:21)
--- NOTE | 2016-12-31 16:05 | HHI.PR ---
Subjective Remarks 81 YOWM with Resp insuff, COPD Weaned to NC Mild sob No Cough or sp No fever Objective Vital Signs Vital Signs Date Time Temp Pulse Resp B/P (MAP) Pulse Ox O2 Delivery O2 Flow Rate FiO2 12/31/16 13:09 91 Nasal Cannula 6.00 12/31/16 12:00 98.6 101 25 118/67 (84) 94 12/31/16 08:00 98.4 94 31 125/72 (89) 95 12/31/16 07:00 90 Nasal Cannula 6.00 12/31/16 06:00 85 12/31/16 04:00 91 12/31/16 04:00 98.6 91 16 128/68 (88) 94 12/31/16 02:00 97 12/31/16 00:00 98 12/31/16 00:00 98.8 98 30 118/67 (84) 91 12/30/16 22:00 102 12/30/16 20:00 100 12/30/16 20:00 98.8 100 28 104/71 (82) 89 12/30/16 19:00 93 Nasal Cannula 6.00 12/30/16 18:00 115 I/O 12/30/16 12/30/16 12/30/16 12/31/16 12/31/16 12/31/16 07:00 15:00 23:00 07:00 15:00 23:00 Intake Total 80 ml 150 ml 740 ml 100 ml Output Total 300 ml 450 ml Balance -220 ml 150 ml 740 ml -350 ml Intake Oral 80 ml 590 ml 100 ml IV Total 150 ml 150 ml Output Urine Total 300 ml 450 ml # Voids 4 # Bowel Movements 0 0 Result Diagram: 12/31/162 12/31/162 Objective Remarks GENERAL: Elderly WM, mild sob SKIN: Warm and dry. HEAD: Normocephalic. EYES: No scleral icterus. No injection or drainage. NECK: Supple, trachea midline. No JVD or lymphadenopathy. CARDIOVASCULAR: Regular rate and rhythm without murmurs, gallops, or rubs. RESPIRATORY: Breath sounds equal bilaterally. No accessory muscle use. GASTROINTESTINAL: Abdomen soft, non-tender, nondistended. MUSCULOSKELETAL: No cyanosis, or edema. BACK: Nontender without obvious deformity. No CVA tenderness. A/P Assessment and Plan COPD exac Resp insuff improving Hypoxia HTN S/P Pacemaker placement. PLAN: IV Solumedrol Cont Abx Duonebs qid Supplement 02 Stable from pulm standpoint to tr to PCU Nilay Quinteros MD Dec 31, 2016 16:05
[2016-12-31] MEDS: CHLORHEXIDINE GLUCONATE 2 % 1 PACK (2 CLOTHS) TOP SCH (22:21)
[2017-01-01] VITALS (19 sets, daily range): BP systolic 112–119; BP diastolic 56–73; PULSE 89–115; RESP 16–28; TEMP 98–98.8; O2SAT 87–98
[2017-01-01] MEDS: RESP: ALBUTEROL 2.5 MG/IPRATROPIUM 0.5 MG NEB (SCH) NEB ×6 (02:55→21:37)
[2017-01-01] MEDS: HEPARIN SODIUM - SQ 10,000 UNITS/ML VIAL SQ SCH ×3 (06:23→21:24)
--- NOTE | 2017-01-01 08:21 | HHI.PR ---
Subjective Remarks looks and feels better today. although still on five liters of oxygen via N/C. no fever. denies pain. Objective Vitals Vital Signs Date Time Temp Pulse Resp B/P (MAP) Pulse Ox O2 Delivery O2 Flow Rate FiO2 01/01/17 07:48 92 Nasal Cannula 5.00 01/01/17 06:00 89 01/01/17 04:00 99 01/01/17 04:00 98.8 99 28 118/73 (88) 92 01/01/17 02:00 95 01/01/17 00:00 104 01/01/17 00:00 98.7 104 24 118/65 (82) 93 12/31/16 22:00 107 12/31/16 20:29 91 Nasal Cannula 5.00 12/31/16 20:00 105 12/31/16 20:00 98.9 105 26 109/67 (81) 90 12/31/16 19:00 90 Nasal Cannula 6.00 12/31/16 18:00 106 12/31/16 16:00 98.6 115 26 112/64 (80) 91 12/31/16 16:00 115 12/31/16 14:00 122 12/31/16 13:09 91 Nasal Cannula 6.00 12/31/16 12:00 101 12/31/16 12:00 98.6 101 25 118/67 (84) 94 12/31/16 10:00 102 I/O 12/31/16 12/31/16 12/31/16 01/01/17 01/01/17 01/01/17 07:00 15:00 23:00 07:00 15:00 23:00 Intake Total 100 ml 1094 ml Output Total 450 ml Balance -350 ml 1094 ml Intake Oral 100 ml IV Total 1094 ml Output Urine Total 450 ml # Voids 4 3 # Bowel Movements 0 0 Result Diagram: 12/31/1642112/31/16421 Imaging Last Impressions Lower Extremity Ultrasound 12/29/16 0000 Signed Impressions: Service Date/Time: Thursday, December 29, 2016 14:36 - CONCLUSION: Normal examination. Hunter Muñoz MD Chest X-Ray 12/29/16 0000 Signed Impressions: Service Date/Time: Thursday, December 29, 2016 10:48 - CONCLUSION: Interval improvement Pacer on the left. Russell Alfredo MD FACR Objective Remarks GENERAL: This is a well-nourished, well-developed patient, in no apparent distress. CARDIOVASCULAR: Regular rate and regular rhythm without murmurs, gallops, or rubs. RESPIRATORY: bilateral air entry present- no wheezing. GASTROINTESTINAL: Abdomen soft, non-tender, nondistended. Normal, active bowel sounds MUSCULOSKELETAL: Extremities without clubbing, cyanosis, or edema. NEURO: Alert & Oriented x4 to person, place, time, situation. Moves all ext x4 Medications and IVs Current Medications Sodium Chloride (NS Flush) 2 ml UNSCH PRN IVF FLUSH AFTER USING IV ACCESS; Start 12/25/16 at 12:15 Methylprednisolone Sodium Succinate (SoluMEDROL INJ) 125 mg ONCE ONCE IVP ; Start 12/25/16 at 12:15; Stop 12/25/16 at 12:16; Status Cancel Albuterol/ Ipratropium (Duoneb Neb) 1 ampule Q15M INH Last administered on 12/25 12:25; Start 12/25/16 at 12:15; Stop 12/25/16 at 12:46; Status DC Levofloxacin/ Dextrose 150 ml @ 100 mls/hr ONCE STAT IV Last administered on 12/25/16 12:55; Start 12/25/16 at 12:40; Stop 12/25/16 at 14:09; Status DC Potassium Chloride 100 ml @ 50 mls/hr BOLUS ONCE IV Last administered on 12/25 14:35; Start 12/25/16 at 13:30; Stop 12/25/16 at 15:29; Status DC Levofloxacin/ Dextrose 150 ml @ 100 mls/hr Q24H IV Last administered on t 10:42; Start 12/26/16 at 12:00 Magnesium Oxide (Mag-Ox) 800 mg UNSCH PRN PO For Magnesium 1.2 - 1.6 mg/dL; Start 12/25/16 at 15:00 Magnesium Sulfate 4 gm/Sodium Chloride 100 ml @ 50 mls/hr UNSCH PRN IV For Magnesium 0.9 - 1.1 mg/dL; Start 12/25/16 at 15:00 Magnesium Sulfate 2 gm/Sodium Chloride 100 ml @ 50 mls/hr UNSCH PRN IV For Magnesium 1.2 - 1.6 mg/dL; Start 12/25/16 at 15:00 Potassium Chloride 100 ml @ 50 mls/hr Q2H PRN IV For Potassium 2.8 - 3.2 mEq/ L Last administered on 12/25/16 20:56; Start 12/25/16 at 15:00 Potassium Chloride 100 ml @ 50 mls/hr Q2H PRN IV For Potassium 3.3 - 3.5 mEq/L ; Start 12/25/16 at 15:00 Potassium Chloride 100 ml @ 50 mls/hr Q2H PRN IV For Potassium 2.8 - 3.2 mEq/L ; Start 12/25/16 at 15:00 Potassium Chloride 100 ml @ 25 mls/hr UNSCH PRN IV For Potassium 3.3 - 3.5 mEq /L; Start 12/25/16 at 15:00 Potassium Phosphate (K-Phos) 2,000 mg Q4H PRN PO For Phosphorus < 2.5 mg/dL; Start 12/25/16 at 15:00 Potassium Phosphate (K-Phos) 2,000 mg UNSCH PRN PO/TUBE SEE LABEL COMMENTS; Start 12/25/16 at 15:00 Potassium Phosphate 30 mmol/ Sodium Chloride 260 ml @ 42 mls/hr UNSCH PRN IV SEE LABEL COMMENTS; Start 12/25/16 at 15:00 Sodium Phosphate 30 mmol/Sodium Chloride 250 ml @ 42 mls/hr UNSCH PRN IV For Phosphorus < 2.5 mg/dL; Start 12/25/16 at 15:00 Methylprednisolone Sodium Succinate (SoluMEDROL INJ) 60 mg Q12HR IV PUSH Last administered on 12/31/16 20:05; Start 12/25/16 at 21:00 Albuterol/ Ipratropium (Duoneb Neb) 1 ampule Q2HR NEB PRN INH WHEEZING Last administered on 12/29/16 16:28; Start 12/25/16 at 15:00 Albuterol/ Ipratropium (Duoneb Neb) 1 ampule Q4HR NEB INH Last administered on 12/29/16 11:47; Start 12/25/16 at 16:00; Stop 12/29/16 at 15:59; Status DC Acetaminophen (Tylenol) 650 mg Q6H PRN PO PAIN 1-10 AND/OR FEVER >101F; Start 12/25/16 at 15:00 Famotidine (Pepcid) 20 mg Q12HR PO Last administered on 12/31/16 20:05; Start 12/25/16 at 21:00 Ondansetron HCl (Zofran Inj) 4 mg Q6H PRN IV PUSH NAUSEA OR VOMITING; Start 03/02 at 15:00 Heparin Sodium (Porcine) (Heparin Inj) 5,000 units Q8H SQ Last administered on 01/01/17 06:23; Start 12/25/16 at 15:00 Miscellaneous Information 1 Q361D XX Last administered on 12/25/16 15:00; Start 12/25/16 at 15:00 Chlorhexidine Gluconate (Chlorhexidine 2% Cloth) Taper DAILY@04 TOP Last administered on 12/29/16 04:00; Start 12/26/16 at 04:00; Stop 12/22/17 at 03:59 Chlorhexidine Gluconate (Chlorhexidine 2% Cloth) 3 pack UNSCH PRN TOP HYGIENIC CARE; Start 12/25/16 at 15:00 Senna/Docusate Sodium (Agata-Colace) 1 tab BID PO Last administered on 20:05; Start 12/25/16 at 21:00 Sodium Chloride 1,000 ml @ 100 mls/hr Q10H IV Last administered on 12/26/16 11:05; Start 12/26/16 at 10:15; Stop 12/26/16 at 15:14; Status DC Sennosides (Senokot) 8.6 mg DAILY PRN PO CONSTIPATION; Start 12/26/16 at 15:15 Albuterol/ Ipratropium (Duoneb Neb) 1 ampule Q4HR NEB NEB Last administered on 01/01/17 07:48; Start 12/30/16 at 12:00 Tiotropium [place] (Spiriva Inh) 18 mcg DAILY INH Last administered on 10:42; Start 12/30/16 at 09:00 Tamsulosin HCl (Flomax) 0.4 mg DAILY PO Last administered on 12/31/16 09:01; Start 12/30/16 at 09:00 Patient Own Medication PT OWN MED: PROPE... DAILY PO ; Start 9/16/17 at 09:00; Status Future Hold Pravastatin Sodium (Pravachol) 20 mg DAILY PO Last administered on 12/31/16t 09 :00; Start 12/30/16 at 09:00 A/P Assessment and Plan A/P - acute hypoxemic respiratory failure / COPD Exacerbation/ LLL pneumonia- improving slowly. keep on oxygen to keep O2 sat > 90%- continue neb treatment; scheduled and prn - continue spiriva- continue IV steroid and antibiotic- pulmonary following. palliative care f/u appreciated and the goals of care remain aggressive at this time. - dyslipidemia; resumed statin -hypertension; BP stable- hold BP meds for now -DVT/GI prophylaxis with subq Heparin and Pepcid -continue PT transfer to telemetry. Dionisio Garcia MD Jan 01, 2017 08:21
[2017-01-01] MEDS: TIOTROPIUM BROMIDE 18 MCG INH INH SCH (09:00)
[2017-01-01] MEDS: PRAVASTATIN SOD 20 MG TAB PO SCH (09:00)
[2017-01-01] MEDS: methylPREDNISolone SOD SUCC 125 MG/2 ML VIAL IV PUSH SCH ×2 (09:37→21:17)
[2017-01-01] MEDS: TAMSULOSIN HCL 0.4 MG CAP PO SCH (09:37)
[2017-01-01] MEDS: FAMOTIDINE 20 MG TAB PO SCH ×2 (09:37→21:17)
[2017-01-01] MEDS: DOCUSATE SODIUM 50 MG/SENNA 8.6 MG TAB PO SCH ×2 (09:37→21:17)
[2017-01-01] MEDS: FLUOROMETHOLONE 0.1% OPHT SUSP 5 ML BTL RIGHT EYE SCH ×2 (12:19→21:18)
[2017-01-01] MEDS: LEVOFLOXACIN 750 MG PREMIX INJ 150 ML IV SCH (12:19)
--- NOTE | 2017-01-01 19:48 | HHI.PR ---
Subjective Remarks 81 YOWM with Resp insuff, COPD Weaned to NC Mild sob No Cough or sp No fever Feels weak " When I am going home" Objective Vital Signs Vital Signs Date Time Temp Pulse Resp B/P (MAP) Pulse Ox O2 Delivery O2 Flow Rate FiO2 01/01/17 17:48 Nasal Cannula 5.00 01/01/17 17:00 115 01/01/17 16:00 111 01/01/17 16:00 98.0 111 27 114/65 (81) 93 01/01/17 15:00 112 01/01/17 14:00 109 01/01/17 13:00 107 01/01/17 12:00 106 16 115/56 (75) 91 01/01/17 12:00 106 01/01/17 11:00 105 01/01/17 10:00 112 01/01/17 09:00 107 01/01/17 08:00 98.0 97 24 119/66 (83) 98 01/01/17 08:00 97 01/01/17 07:48 92 Nasal Cannula 5.00 01/01/17 07:00 92 Nasal Cannula 6.00 01/01/17 07:00 96 01/01/17 06:00 89 01/01/17 04:00 99 01/01/17 04:00 98.8 99 28 118/73 (88) 92 01/01/17 02:00 95 01/01/17 00:00 104 01/01/17 00:00 98.7 104 24 118/65 (82) 93 12/31/16 22:00 107 12/31/16 20:29 91 Nasal Cannula 5.00 12/31/16 20:00 105 12/31/16 20:00 98.9 105 26 109/67 (81) 90 I/O 12/31/16 12/31/16 12/31/16 01/01/17 01/01/17 01/01/17 07:00 15:00 23:00 07:00 15:00 23:00 Intake Total 100 ml 1094 ml Output Total 450 ml Balance -350 ml 1094 ml Intake Oral 100 ml IV Total 1094 ml Output Urine Total 450 ml # Voids 4 3 # Bowel Movements 0 0 Result Diagram: 12/31/1642112/31/16421 Objective Remarks GENERAL: Elderly WM, mild sob SKIN: Warm and dry. HEAD: Normocephalic. EYES: No scleral icterus. No injection or drainage. NECK: Supple, trachea midline. No JVD or lymphadenopathy. CARDIOVASCULAR: Regular rate and rhythm without murmurs, gallops, or rubs. RESPIRATORY: Breath sounds equal bilaterally. No accessory muscle use. GASTROINTESTINAL: Abdomen soft, non-tender, nondistended. MUSCULOSKELETAL: No cyanosis, or edema. BACK: Nontender without obvious deformity. No CVA tenderness. A/P Assessment and Plan COPD exac Resp insuff improving Hypoxia HTN S/P Pacemaker placement. PLAN: IV Solumedrol Cont Abx Duonebs qid Supplement 02 Nilay Quinteros MD Jan 01, 2017 19:48
[2017-01-02] VITALS (8 sets, daily range): BP systolic 102–123; BP diastolic 58–69; PULSE 107–119; RESP 14–20; TEMP 98–98.9; O2SAT 88–93
[2017-01-02] MEDS: RESP: ALBUTEROL 2.5 MG/IPRATROPIUM 0.5 MG NEB (SCH) NEB ×6 (00:18→19:48)
[2017-01-02] MEDS: CHLORHEXIDINE GLUCONATE 2 % 1 PACK (2 CLOTHS) TOP SCH (03:56)
[2017-01-02] MEDS: HEPARIN SODIUM - SQ 10,000 UNITS/ML VIAL SQ SCH ×3 (05:43→20:41)
[2017-01-02] MEDS: methylPREDNISolone SOD SUCC 125 MG/2 ML VIAL IV PUSH SCH ×2 (09:00→20:40)
--- NOTE | 2017-01-02 09:25 | HHI.PR ---
Subjective Remarks with some sob. currently on six liters of oxygen. not as alert as yesterday. has occasional cough. no fever. d/w the RN. Objective Vitals Vital Signs Date Time Temp Pulse Resp B/P (MAP) Pulse Ox O2 Delivery O2 Flow Rate FiO2 01/02/17 08:15 89 Nasal Cannula 6.00 01/02/17 04:00 98.1 116 20 104/59 (74) 93 01/02/17 00:00 98.9 119 20 115/63 (80) 93 01/01/17 21:39 90 Nasal Cannula 5.00 01/01/17 20:00 98.4 108 20 118/61 (80) 91 01/01/17 20:00 Nasal Cannula 5.00 01/01/17 20:00 105 01/01/17 17:48 Nasal Cannula 5.00 01/01/17 17:45 98.1 112 20 112/65 (81) 87 01/01/17 17:00 115 01/01/17 16:00 111 01/01/17 16:00 98.0 111 27 114/65 (81) 93 01/01/17 15:00 112 01/01/17 14:00 109 01/01/17 13:00 107 01/01/17 12:00 106 16 115/56 (75) 91 01/01/17 12:00 106 01/01/17 11:00 105 01/01/17 10:00 112 I/O 01/01/17 01/01/17 01/01/17 01/02/17 01/02/17 01/02/17 07:00 15:00 23:00 07:00 15:00 23:00 Intake Total 240 ml Balance 240 ml Intake Oral 240 ml # Voids 3 3 # Bowel Movements 0 0 Result Diagram: 12/31/16 0422 12/31/16 0422 Imaging Last Impressions Lower Extremity Ultrasound 12/29/16 0000 Signed Impressions: Service Date/Time: Thursday, December 29, 2016 14:36 - CONCLUSION: Normal examination. Hunter Muñoz MD Chest X-Ray 12/29/16 0000 Signed Impressions: Service Date/Time: Thursday, December 29, 2016 10:48 - CONCLUSION: Interval improvement Pacer on the left. Russell Alfredo MD FACR Objective Remarks GENERAL: This is a well-nourished, well-developed patient, in no apparent distress. CARDIOVASCULAR: Regular rate and regular rhythm without murmurs, gallops, or rubs. RESPIRATORY: bilateral air entry present- no wheezing. GASTROINTESTINAL: Abdomen soft, non-tender, nondistended. Normal, active bowel sounds MUSCULOSKELETAL: Extremities without clubbing, cyanosis, or edema. NEURO: Alert & Oriented x4 to person, place, time, situation. Moves all ext x4 Medications and IVs Current Medications Sodium Chloride (NS Flush) 2 ml UNSCH PRN IVF FLUSH AFTER USING IV ACCESS; Start 12/25/16 at 12:15 Methylprednisolone Sodium Succinate (SoluMEDROL INJ) 125 mg ONCE ONCE IVP ; Start 12/25/16 at 12:15; Stop 12/25/16 at 12:16; Status Cancel Albuterol/ Ipratropium (Duoneb Neb) 1 ampule Q15M INH Last administered on 12/25 12:25; Start 12/25/16 at 12:15; Stop 12/25/16 at 12:46; Status DC Levofloxacin/ Dextrose 150 ml @ 100 mls/hr ONCE STAT IV Last administered on 12/25/16 12:55; Start 12/25/16 at 12:40; Stop 12/25/16 at 14:09; Status DC Potassium Chloride 100 ml @ 50 mls/hr BOLUS ONCE IV Last administered on 12/25 14:35; Start 12/25/16 at 13:30; Stop 12/25/16 at 15:29; Status DC Levofloxacin/ Dextrose 150 ml @ 100 mls/hr Q24H IV Last administered on t 12:19; Start 12/26/16 at 12:00 Magnesium Oxide (Mag-Ox) 800 mg UNSCH PRN PO For Magnesium 1.2 - 1.6 mg/dL; Start 12/25/16 at 15:00; Stop 01/01/17 at 08:20; Status DC Magnesium Sulfate 4 gm/Sodium Chloride 100 ml @ 50 mls/hr UNSCH PRN IV For Magnesium 0.9 - 1.1 mg/dL; Start 12/25/16 at 15:00; Stop 01/01/17 at 08:20; Status DC Magnesium Sulfate 2 gm/Sodium Chloride 100 ml @ 50 mls/hr UNSCH PRN IV For Magnesium 1.2 - 1.6 mg/dL; Start 12/25/16 at 15:00; Stop 01/01/17 at 08:20; Status DC Potassium Chloride 100 ml @ 50 mls/hr Q2H PRN IV For Potassium 2.8 - 3.2 mEq/ L Last administered on 12/25/16t 20:56; Start 12/25/16 at 15:00; Stop 01/01/17 at 08:20; Status DC Potassium Chloride 100 ml @ 50 mls/hr Q2H PRN IV For Potassium 3.3 - 3.5 mEq/L ; Start 12/25/16 at 15:00; Stop 01/01/17 at 08:20; Status DC Potassium Chloride 100 ml @ 50 mls/hr Q2H PRN IV For Potassium 2.8 - 3.2 mEq/L ; Start 12/25/16 at 15:00; Stop 01/01/17 at 08:20; Status DC Potassium Chloride 100 ml @ 25 mls/hr UNSCH PRN IV For Potassium 3.3 - 3.5 mEq /L; Start 12/25/16 at 15:00; Stop 01/01/17 at 08:20; Status DC Potassium Phosphate (K-Phos) 2,000 mg Q4H PRN PO For Phosphorus < 2.5 mg/dL; Start 12/25/16 at 15:00 Potassium Phosphate (K-Phos) 2,000 mg UNSCH PRN PO/TUBE SEE LABEL COMMENTS; Start 12/25/16 at 15:00 Potassium Phosphate 30 mmol/ Sodium Chloride 260 ml @ 42 mls/hr UNSCH PRN IV SEE LABEL COMMENTS; Start 12/25/16 at 15:00; Stop 01/01/17 at 08:20; Status DC Sodium Phosphate 30 mmol/Sodium Chloride 250 ml @ 42 mls/hr UNSCH PRN IV For Phosphorus < 2.5 mg/dL; Start 12/25/16 at 15:00; Stop 01/01/17 at 08:20; Status DC Methylprednisolone Sodium Succinate (SoluMEDROL INJ) 60 mg Q12HR IV PUSH Last administered on 01/01/17t 21:17; Start 12/25/16 at 21:00 Albuterol/ Ipratropium (Duoneb Neb) 1 ampule Q2HR NEB PRN INH WHEEZING Last administered on 12/29/16 16:28; Start 12/25/16 at 15:00 Albuterol/ Ipratropium (Duoneb Neb) 1 ampule Q4HR NEB INH Last administered on 12/29/16 11:47; Start 12/25/16 at 16:00; Stop 12/29/16 at 15:59; Status DC Acetaminophen (Tylenol) 650 mg Q6H PRN PO PAIN 1-10 AND/OR FEVER >101F; Start 12/25/16 at 15:00 Famotidine (Pepcid) 20 mg Q12HR PO Last administered on 01/01/17 21:17; Start 12/25/16 at 21:00 Ondansetron HCl (Zofran Inj) 4 mg Q6H PRN IV PUSH NAUSEA OR VOMITING; Start 03/02 at 15:00 Heparin Sodium (Porcine) (Heparin Inj) 5,000 units Q8H SQ Last administered on 01/02/17 05:43; Start 12/25/16 at 15:00 Miscellaneous Information 1 Q361D XX Last administered on 12/25/16 15:00; Start 12/25/16 at 15:00 Chlorhexidine Gluconate (Chlorhexidine 2% Cloth) Taper DAILY@04 TOP Last administered on 12/29/16 04:00; Start 12/26/16 at 04:00; Stop 12/22/17 at 03:59 Chlorhexidine Gluconate (Chlorhexidine 2% Cloth) 3 pack UNSCH PRN TOP HYGIENIC CARE; Start 12/25/16 at 15:00 Senna/Docusate Sodium (Agata-Colace) 1 tab BID PO Last administered on 21:17; Start 12/25/16 at 21:00 Sodium Chloride 1,000 ml @ 100 mls/hr Q10H IV Last administered on 12/26/16 11:05; Start 12/26/16 at 10:15; Stop 12/26/16 at 15:14; Status DC Sennosides (Senokot) 8.6 mg DAILY PRN PO CONSTIPATION; Start 12/26/16 at 15:15 Albuterol/ Ipratropium (Duoneb Neb) 1 ampule Q4HR NEB NEB Last administered on 9/19/17at 08:13; Start 12/30/16 at 12:00 Tiotropium [place] (Spiriva Inh) 18 mcg DAILY INH Last administered on 09:00; Start 12/30/16 at 09:00 Tamsulosin HCl (Flomax) 0.4 mg DAILY PO Last administered on 01/01/17 09:37; Start 12/30/16 at 09:00 Patient Own Medication PT OWN MED: PROPE... DAILY PO ; Start 12/30/16 at 09:00; Status Future Hold Pravastatin Sodium (Pravachol) 20 mg DAILY PO Last administered on 01/01/17 09 :00; Start 12/30/16 at 09:00 Fluorometholone (Fml Liquifilm Opth Susp) 1 drop BID RIGHT EYE Last administered on 01/01/17 21:18; Start 01/01/17 at 12:30 A/P Assessment and Plan A/P - acute hypoxemic respiratory failure / COPD Exacerbation/ LLL pneumonia- improving slowly. keep on oxygen to keep O2 sat > 90%- continue neb treatment; scheduled and prn - continue spiriva- continue IV steroid and antibiotic- pulmonary following. palliative care f/u appreciated and the goals of care remain aggressive at this time. - dyslipidemia; resumed statin -hypertension; BP stable- hold BP meds for now -DVT/GI prophylaxis with subq Heparin and Pepcid -continue PT Dionisio Garcia MD Jan 02, 2017 09:25
[2017-01-02] MEDS: FAMOTIDINE 20 MG TAB PO SCH ×2 (10:07→20:40)
[2017-01-02] MEDS: TAMSULOSIN HCL 0.4 MG CAP PO SCH (10:08)
[2017-01-02] MEDS: DOCUSATE SODIUM 50 MG/SENNA 8.6 MG TAB PO SCH ×2 (10:08→20:40)
[2017-01-02] MEDS: PRAVASTATIN SOD 20 MG TAB PO SCH (10:08)
[2017-01-02] MEDS: FLUOROMETHOLONE 0.1% OPHT SUSP 5 ML BTL RIGHT EYE SCH ×2 (10:09→20:46)
[2017-01-02] MEDS: TIOTROPIUM BROMIDE 18 MCG INH INH SCH (10:16)
--- NOTE | 2017-01-02 11:56 | HHI.PR ---
Addendum To [facility] Progress Not Reason for addendum: Additonal documentation (had a lenghty discussion with the daughter at the bedside; she was given an update- comfort measures were discussed and she chose to proceed with hospice- d/w and the case management. ) Dionisio Garcia MD Jan 02, 2017 11:56
[2017-01-02] MEDS: LEVOFLOXACIN 750 MG PREMIX INJ 150 ML IV SCH (13:18)
--- NOTE | 2017-01-02 16:51 | HHI.HCPN ---
Reason for visit a. To assist with evaluation and management of symptoms including: dyspnea b. To assist medical decision maker(s) with: better understanding of current medical conditions; weighing benefits/burdens of medical treatment options; making medical treatment decisions. . Subjective/Interval History Pt remains dyspneic, weak, and dyspnea, but on NC. Long talk with him and daughter. He is amenable to DNR, and hospice. Consult placed. He ask daughter to complete paperwork for him, as he is weak, and to sign consents from now on. Could hardly talk, only nods. He is capacitated. Communication has been through typing of the computer with large fonts. Family/friend interactions see malcolm. Advance Directives Living Will: Completed, but not made available Health Care Surrogate: Completed, but not made available Durable Power of Oil Developer: Completed, but not made available Advance Directive Specifics Date completed: No completed living will. Patient has completed a verbal health care surrogate designation on 12/26/16. He wants his daughter to serve as surrogate. . . Health Care Surrogate(s): He has designated his daughter -- Estefany Ayala. . . Documented care wishes: No written documentation of health care wishes. . Objective Vital Signs Date Time Temp Pulse Resp B/P (MAP) Pulse Ox O2 Delivery O2 Flow Rate FiO2 01/02/17 15:30 92 Nasal Cannula 6.00 01/02/17 08:45 107 01/02/17 08:15 89 Nasal Cannula 6.00 01/02/17 08:00 98.1 109 20 107/58 (74) 88 01/02/17 04:00 98.1 116 20 104/59 (74) 93 01/02/17 00:00 98.9 119 20 115/63 (80) 93 01/01/17 21:39 90 Nasal Cannula 5.00 01/01/17 20:00 98.4 108 20 118/61 (80) 91 01/01/17 20:00 Nasal Cannula 5.00 01/01/17 20:00 105 01/01/17 17:48 Nasal Cannula 5.00 01/01/17 17:45 98.1 112 20 112/65 (81) 87 01/01/17 17:00 115 Intake & Output 01/02/17 01/02/17 07:00 19:00 Intake Total 240 ml Balance 240 ml Intake Oral 240 ml # Voids 3 # Bowel Movements 0 Physical Exam CONSTITUTIONAL/GENERAL: This is a thin, pale male ,dyspnic , frail TUBES/LINES/DRAINS: Peripehral IV; Nasal Canula; condom catheter. SKIN: No jaundice, rashes, or lesions. No wounds seen anteriorly. Skin temperature appropriate. Not diaphoretic. EYES: Pupils equal and round. Extraocular motions intact. No scleral icterus. No injection or drainage. Fundi not examined. ENT: VERY hard of hearing. hearing aid in right ear. Nose without bleeding or purulent drainage. Throat without visible erythema, exudates, masses, or lesions. NECK: Trachea midline. Supple, nontender. CARDIOVASCULAR: Regular rate and rhythm without murmurs, gallops, or rubs. No JVD. RESPIRATORY/CHEST: Symmetric, . coarse. GASTROINTESTINAL: Abdomen soft, non-tender, nondistended. No hepato-splenomegaly , or palpable masses. No guarding. Bowel sounds present. GENITOURINARY: Without palpable bladder distension. Condom catheter in place. MUSCULOSKELETAL: Extremities without clubbing, cyanosis, or edema... No mottling . LYMPHATICS: not examined NEUROLOGICAL: Awake and alert. Motor and sensory grossly within normal limits. Follows commands. Cognitively sharp. Moves all extremities. PSYCHIATRIC: No obvious anxiety/depression. No apparent hallucinations or other psychotic thought process. . Diagnostic Tests Laboratory Laboratory Tests Test 12/31/16 04:22 White Blood Count 14.4 TH/MM3 (4.0-11.0) Red Blood Count 5.13 MIL/MM3 (4.50-5.90) Hemoglobin 14.7 GM/DL (13.0-17.0) Hematocrit 45.1 % (39.0-51.0) Mean Corpuscular Volume 88.0 FL (80.0-100.0) Mean Corpuscular Hemoglobin 28.7 PG (27.0-34.0) Mean Corpuscular Hemoglobin Concent 32.6 % (32.0-36.0) Red Cell Distribution Width 13.8 % (11.6-17.2) Platelet Count 177 TH/MM3 (150-450) Mean Platelet Volume 7.0 FL (7.0-11.0) Blood Urea Nitrogen 37 MG/DL (7-18) Creatinine 0.96 MG/DL (0.60-1.30) Random Glucose 153 MG/DL (74-106) Calcium Level 8.7 MG/DL (8.5-10.1) Sodium Level 142 MEQ/L (136-145) Potassium Level 4.3 MEQ/L (3.5-5.1) Chloride Level 106 MEQ/L (98-107) Carbon Dioxide Level 29.9 MEQ/L (21.0-32.0) Anion Gap 6 MEQ/L (5-15) Estimat Glomerular Filtration Rate 75 ML/MIN (>89) Result Diagram: 12/31/16 0422 12/31/16 0422 Imaging Last Impressions Lower Extremity Ultrasound 12/29/16 0000 Signed Impressions: Service Date/Time: Thursday, December 29, 2016 14:36 - CONCLUSION: Normal examination. Hunter Muñoz MD Chest X-Ray 12/29/16 0000 Signed Impressions: Service Date/Time: Thursday, December 29, 2016 10:48 - CONCLUSION: Interval improvement Pacer on the left. Russell Alfredo MD FACR Assessment and Plan Disease Oriented Problem List: (1) COPD (chronic obstructive pulmonary disease) (2) Pneumonia (3) COPD exacerbation (4) Weight loss (5) Hard of hearing (6) Coronary artery disease (7) Cardiac defibrillator in place Comment: Patient has never experienced a shock from his AICD. . (8) BPH (benign prostatic hyperplasia) Symptom Scale: (1) Dyspnea 0-10 Scale: 0 Comment: Dyspnea probably secondary to COPD exacerbation and/or pneumonia. Dyspnea controlled at rest on high flow 02, nebs, iv antibiotics, steroids. . (2) Pain 0-10 Scale: 0 Comment: Frequently complains of back pain which has been present for many years. No complaints at this time. . . (3) Weight loss 0-10 Scale: Unable to quantify (Patient estimates he has lost about 20 lbs in the last year or so. ) Pertinent Non-Medical Issues Psychosocial: Normally lives alone, drives, ambulates without assistive device. May be getting more difficult for him to live independently. Spiritual: Mandaen -- need to evaluate further. Legal: No known written living will at this time.. Has verbally stated he wants his daughter to serve as health care surrogate (he does not want his son making decision). Ethical issues impacting care: No ethical issues impacting care at this time. . Important Contacts * Estefany Bathurst (daughter and health care surrogate) [phone] * Patient's son is homeless -- no contact info. . . Prognosis Patient had been living independently up until this hospitalization. He has not had a history of hospitalizations for his breathing problems. He has never been intubated. He is O2 dependent and have been losing wt. I suspect his given his wt loss is contributed by his COPD, as daughter states he has been eating. I suspect should he survive current hospitalization, it will be repeated hospitalization for him for dyspnea. He is at risk of sudden decline, setback and . Prognosis is critical and guarded. He continues to need high flow O2 and at risk of decompensation. . Code Status: No Code Plan == Code Status: DNR == Decision making: Patient is currently capacitated to make his own health care decisions. Should he become incapacitated, he would want his daughter -- Estefany Ayala -- to make those decisions for him. I presented options to him on paper in large font. He selected his daughter consistently. This was witnessed by the nursing staff (Lorie). The patient has specifically stated that he does not want his son to serve as surrogate. == Goals of medical treatment: Pt remains dyspneic, weak, and dyspnea, but on NC. Long talk with him and daughter. He is amenable to DNR, and hospice. Consult placed. He ask daughter to complete paperwork for him, as he is weak, and to sign consents from now on. Could hardly talk, only nods. He is capacitated. Communication has been through typing of the computer with large fonts. == Palliative care symptoms. * Pain: Patient has a history of years of back pain. Though he frequently complains of back pain (per daughter) he rarely takes any analgesics. No other pain syndromes known. * Dyspnea: copd, comfort meds will be ordered. * Anxiety: Does not appear to be an issue. * Depression: Does not appear to be an issue * Poor appetite/Wt loss: == Communication: Through typing on a computer with large fonts. Very hearing impaired. == Disposition: Hospice. He understand he will be in a care center and a very large chance he will decline and there. Sang Gross MD Jan 02, 2017 16:51
[2017-01-02] MEDS ORDERED: HYDROmorphone HCL PF 2 MG/ML VIAL IV PUSH PRN ×2 (17:00)
[2017-01-02] MEDS ORDERED: LORazepam 2 MG/ML VIAL IV PUSH PRN ×2 (17:30)
--- NOTE | 2017-01-02 18:03 | HHI.PR ---
Subjective Remarks 81 YOWM with Resp insuff, COPD Mild sob No Cough or sp No fever Feels weak On 6LNC desaturates with any activity Refuses to use VM Objective Vital Signs Vital Signs Date Time Temp Pulse Resp B/P (MAP) Pulse Ox O2 Delivery O2 Flow Rate FiO2 01/02/17 15:30 92 Nasal Cannula 6.00 01/02/17 08:45 107 01/02/17 08:15 89 Nasal Cannula 6.00 01/02/17 08:00 98.1 109 20 107/58 (74) 88 01/02/17 07:00 Nasal Cannula 5.00 01/02/17 04:00 98.1 116 20 104/59 (74) 93 01/02/17 00:00 98.9 119 20 115/63 (80) 93 01/01/17 21:39 90 Nasal Cannula 5.00 01/01/17 20:00 98.4 108 20 118/61 (80) 91 01/01/17 20:00 Nasal Cannula 5.00 01/01/17 20:00 105 I/O 01/01/17 01/01/17 01/01/17 01/02/17 01/02/17 01/02/17 07:00 15:00 23:00 07:00 15:00 23:00 Intake Total 240 ml Balance 240 ml Intake Oral 240 ml # Voids 3 3 # Bowel Movements 0 0 Result Diagram: 12/31/1642112/31/16421 Objective Remarks GENERAL: Elderly WM, mild sob SKIN: Warm and dry. HEAD: Normocephalic. EYES: No scleral icterus. No injection or drainage. NECK: Supple, trachea midline. No JVD or lymphadenopathy. CARDIOVASCULAR: Regular rate and rhythm without murmurs, gallops, or rubs. RESPIRATORY: Breath sounds equal bilaterally. No accessory muscle use. GASTROINTESTINAL: Abdomen soft, non-tender, nondistended. MUSCULOSKELETAL: No cyanosis, or edema. BACK: Nontender without obvious deformity. No CVA tenderness. A/P Assessment and Plan COPD exac Resp insuff improving Hypoxia HTN S/P Pacemaker placement. PLAN: IV Solumedrol Cont Abx Duonebs qid Supplement 02 Hospice consulted Nilay Quinteros MD Jan 02, 2017 18:03
[2017-01-03] VITALS: BP 114/66; PULSE 109; RESP 14; TEMP 98.1; O2SAT 89
[2017-01-03] MEDS: RESP: ALBUTEROL 2.5 MG/IPRATROPIUM 0.5 MG NEB (SCH) NEB ×3 (00:08→08:03)
[2017-01-03 00:11] VITALS: O2SAT 90
[2017-01-03] MEDS: CHLORHEXIDINE GLUCONATE 2 % 1 PACK (2 CLOTHS) TOP SCH (02:34)
[2017-01-03 04:00] VITALS: BP 118/67; PULSE 104; RESP 14; TEMP 97.7; O2SAT 89
[2017-01-03] MEDS: HEPARIN SODIUM - SQ 10,000 UNITS/ML VIAL SQ SCH (05:39)
[2017-01-03 08:00] VITALS: BP 118/65; PULSE 102; RESP 16; TEMP 97.8; O2SAT 86
[2017-01-03 08:15] VITALS: O2SAT 87
[2017-01-03] MEDS: PRAVASTATIN SOD 20 MG TAB PO SCH (09:00)
[2017-01-03] MEDS: TIOTROPIUM BROMIDE 18 MCG INH INH SCH (09:00)
[2017-01-03] MEDS: methylPREDNISolone SOD SUCC 125 MG/2 ML VIAL IV PUSH SCH (09:00)
[2017-01-03] MEDS: FAMOTIDINE 20 MG TAB PO SCH (09:00)
[2017-01-03] MEDS: FLUOROMETHOLONE 0.1% OPHT SUSP 5 ML BTL RIGHT EYE SCH (09:00)
[2017-01-03] MEDS: TAMSULOSIN HCL 0.4 MG CAP PO SCH (09:00)
[2017-01-03] MEDS: DOCUSATE SODIUM 50 MG/SENNA 8.6 MG TAB PO SCH (09:00)
[2017-01-03 12:00] VITALS: BP 114/64; PULSE 118; RESP 18; TEMP 98; O2SAT 87
--- NOTE | 2017-01-03 12:27 | HHI.PR ---
Subjective Remarks ill looking with some sob. on six liters of oxygen via [place] daughter at the bedside. d/w the disk and tape machine tender. Objective Vitals Vital Signs Date Time Temp Pulse Resp B/P (MAP) Pulse Ox O2 Delivery O2 Flow Rate FiO2 01/03/17 08:15 87 Nasal Cannula 6.00 01/03/17 08:00 97.8 102 16 118/65 (82) 86 01/03/17 04:00 97.7 104 14 118/67 (84) 89 01/03/17 00:11 90 Nasal Cannula 6.00 01/03/17 00:00 98.1 109 14 114/66 (82) 89 01/02/17 20:00 98.0 114 14 102/69 (80) 92 01/02/17 15:30 92 Nasal Cannula 6.00 I/O 01/02/17 01/02/17 01/02/17 01/03/17 01/03/17 01/03/17 07:00 15:00 23:00 07:00 15:00 23:00 Intake Total 240 ml 720 ml Balance 240 ml 720 ml Intake Oral 240 ml 720 ml # Voids 3 2 3 # Bowel Movements 0 0 Result Diagram: 12/31/16 0422 12/31/16 0422 Imaging Last Impressions Lower Extremity Ultrasound 12/29/16 0000 Signed Impressions: Service Date/Time: Thursday, December 29, 2016 14:36 - CONCLUSION: Normal examination. Hunter Muñoz MD Chest X-Ray 12/29/16 0000 Signed Impressions: Service Date/Time: Thursday, December 29, 2016 10:48 - CONCLUSION: Interval improvement Pacer on the left. Russell Alfredo MD FACR Objective Remarks GENERAL: This is a well-nourished, well-developed patient, in no apparent distress. CARDIOVASCULAR: Regular rate and regular rhythm without murmurs, gallops, or rubs. RESPIRATORY: bilateral air entry present- no wheezing. GASTROINTESTINAL: Abdomen soft, non-tender, nondistended. Normal, active bowel sounds MUSCULOSKELETAL: Extremities without clubbing, cyanosis, or edema. NEURO: Alert & Oriented x4 to person, place, time, situation. Moves all ext x4 Medications and IVs Current Medications Sodium Chloride (NS Flush) 2 ml UNSCH PRN IVF FLUSH AFTER USING IV ACCESS Last administered on 01/02/17 20:41; Start 12/25/16 at 12:15 Methylprednisolone Sodium Succinate (SoluMEDROL INJ) 125 mg ONCE ONCE IVP ; Start 12/25/16 at 12:15; Stop 12/25/16 at 12:16; Status Cancel Albuterol/ Ipratropium (Duoneb Neb) 1 ampule Q15M INH Last administered on 12/25 12:25; Start 12/25/16 at 12:15; Stop 12/25/16 at 12:46; Status DC Levofloxacin/ Dextrose 150 ml @ 100 mls/hr ONCE STAT IV Last administered on 12/25/16 12:55; Start 12/25/16 at 12:40; Stop 12/25/16 at 14:09; Status DC Potassium Chloride 100 ml @ 50 mls/hr BOLUS ONCE IV Last administered on 12/25 14:35; Start 12/25/16 at 13:30; Stop 12/25/16 at 15:29; Status DC Levofloxacin/ Dextrose 150 ml @ 100 mls/hr Q24H IV Last administered on 13:18; Start 12/26/16 at 12:00 Magnesium Oxide (Mag-Ox) 800 mg UNSCH PRN PO For Magnesium 1.2 - 1.6 mg/dL; Start 12/25/16 at 15:00; Stop 01/01/17 at 08:20; Status DC Magnesium Sulfate 4 gm/Sodium Chloride 100 ml @ 50 mls/hr UNSCH PRN IV For Magnesium 0.9 - 1.1 mg/dL; Start 12/25/16 at 15:00; Stop 01/01/17 at 08:20; Status DC Magnesium Sulfate 2 gm/Sodium Chloride 100 ml @ 50 mls/hr UNSCH PRN IV For Magnesium 1.2 - 1.6 mg/dL; Start 12/25/16 at 15:00; Stop 01/01/17 at 08:20; Status DC Potassium Chloride 100 ml @ 50 mls/hr Q2H PRN IV For Potassium 2.8 - 3.2 mEq/ L Last administered on 12/25/16 20:56; Start 12/25/16 at 15:00; Stop 01/01/17 at 08:20; Status DC Potassium Chloride 100 ml @ 50 mls/hr Q2H PRN IV For Potassium 3.3 - 3.5 mEq/L ; Start 12/25/16 at 15:00; Stop 01/01/17 at 08:20; Status DC Potassium Chloride 100 ml @ 50 mls/hr Q2H PRN IV For Potassium 2.8 - 3.2 mEq/L ; Start 12/25/16 at 15:00; Stop 01/01/17 at 08:20; Status DC Potassium Chloride 100 ml @ 25 mls/hr UNSCH PRN IV For Potassium 3.3 - 3.5 mEq /L; Start 12/25/16 at 15:00; Stop 01/01/17 at 08:20; Status DC Potassium Phosphate (K-Phos) 2,000 mg Q4H PRN PO For Phosphorus < 2.5 mg/dL; Start 12/25/16 at 15:00 Potassium Phosphate (K-Phos) 2,000 mg UNSCH PRN PO/TUBE SEE LABEL COMMENTS; Start 12/25/16 at 15:00 Potassium Phosphate 30 mmol/ Sodium Chloride 260 ml @ 42 mls/hr UNSCH PRN IV SEE LABEL COMMENTS; Start 12/25/16 at 15:00; Stop 01/01/17 at 08:20; Status DC Sodium Phosphate 30 mmol/Sodium Chloride 250 ml @ 42 mls/hr UNSCH PRN IV For Phosphorus < 2.5 mg/dL; Start 12/25/16 at 15:00; Stop 01/01/17 at 08:20; Status DC Methylprednisolone Sodium Succinate (SoluMEDROL INJ) 60 mg Q12HR IV PUSH Last administered on 01/03/17 09:00; Start 12/25/16 at 21:00 Albuterol/ Ipratropium (Duoneb Neb) 1 ampule Q2HR NEB PRN INH WHEEZING Last administered on 12/29/16 16:28; Start 12/25/16 at 15:00 Albuterol/ Ipratropium (Duoneb Neb) 1 ampule Q4HR NEB INH Last administered on 12/29/16 11:47; Start 12/25/16 at 16:00; Stop 12/29/16 at 15:59; Status DC Acetaminophen (Tylenol) 650 mg Q6H PRN PO PAIN 1-10 AND/OR FEVER >101F; Start 12/25/16 at 15:00 Famotidine (Pepcid) 20 mg Q12HR PO Last administered on 01/03/17 09:00; Start 12/25/16 at 21:00 Ondansetron HCl (Zofran Inj) 4 mg Q6H PRN IV PUSH NAUSEA OR VOMITING; Start 03/02 at 15:00 Heparin Sodium (Porcine) (Heparin Inj) 5,000 units Q8H SQ Last administered on 01/03/17 05:39; Start 12/25/16 at 15:00 Miscellaneous Information 1 [id number] XX Last administered on 12/25/16 15:00; Start 12/25/16 at 15:00 Chlorhexidine Gluconate (Chlorhexidine 2% Cloth) Taper DAILY@04 TOP Last administered on 12/29/16 04:00; Start 12/26/16 at 04:00; Stop 12/22/17 at 03:59 Chlorhexidine Gluconate (Chlorhexidine 2% Cloth) 3 pack UNSCH PRN TOP HYGIENIC CARE; Start 12/25/16 at 15:00 Senna/Docusate Sodium (Agata-Colace) 1 tab BID PO Last administered on 09:00; Start 12/25/16 at 21:00 Sodium Chloride 1,000 ml @ 100 mls/hr Q10H IV Last administered on 12/26/16 11:05; Start 12/26/16 at 10:15; Stop 12/26/16 at 15:14; Status DC Sennosides (Senokot) 8.6 mg DAILY PRN PO CONSTIPATION; Start 12/26/16 at 15:15 Albuterol/ Ipratropium (Duoneb Neb) 1 ampule Q4HR NEB NEB Last administered on 01/03/17 08:03; Start 12/30/16 at 12:00; Stop 01/03/17 at 11:59; Status DC Tiotropium [place] (Spiriva Inh) 18 mcg DAILY INH Last administered on 09:00; Start 12/30/16 at 09:00 Tamsulosin HCl (Flomax) 0.4 mg DAILY PO Last administered on 01/03/17 09:00; Start 12/30/16 at 09:00 Patient Own Medication PT OWN MED: PROPE... DAILY PO ; Start 12/30/16 at 09:00; Status Future Hold Pravastatin Sodium (Pravachol) 20 mg DAILY PO Last administered on 01/03/17 09 :00; Start 12/30/16 at 09:00 Fluorometholone (Fml Liquifilm Opth Susp) 1 drop BID RIGHT EYE Last administered on 01/03/17 09:00; Start 01/01/17 at 12:30 Hydromorphone HCl (Dilaudid Pf Inj) 0.75 mg Q2HR PRN IV PUSH SEE LABEL COMMENTS Last administered on 01/02/17 18:53; Start 01/02/17 at 17:00 Hydromorphone HCl (Dilaudid Pf Inj) 1 mg Q2HR PRN IV PUSH SEE LABEL COMMENTS; Start 01/02/17 at 17:00 Lorazepam (Ativan Inj) 1 mg Q1H PRN IV PUSH SEE LABEL COMMENTS; Start 01/02/17 at 17:30 Lorazepam (Ativan Inj) 2 mg Q1H PRN IV PUSH SEE LABEL COMMENTS; Start 01/02/17 at 17:30 A/P Assessment and Plan A/P - acute hypoxemic respiratory failure / COPD Exacerbation/ LLL pneumonia- still on oxygen via [place] continue neb treatment; scheduled and prn- continue spiriva- pulmonary following. hospice consulted. - dyslipidemia; resumed statin -hypertension; BP stable- hold BP meds for now -DVT/GI prophylaxis with subq Heparin and Pepcid -continue PT Discharge Planning dc to hospice today. d/w the patient and his daughter at the bedside. d/w the disk and tape machine tender. time spent 35 min. Dionisio Garcia MD Jan 03, 2017 12:27
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
== END 2017-01-03 14:20 | disposition hospice, inpatient (51) | DRG 871 ==
LOC: NEPE 11:58 → NEDA 13:25 → HIME 14:45 → N04A 01-01 17:03
PROVIDERS: ADMIT Internal Medicine; ATTEND Internal Medicine
PROC: 5A09357 Assistance with Respiratory Ventilation, Less than 24 Consecutive Hours, Continuous Positive Airway Pressure (ICD-10-PCS; principal; 2016-12-25)
DX: A41.9 Sepsis, unspecified organism (principal); J18.9 Pneumonia, unspecified organism; J96.01 Acute respiratory failure with hypoxia; I11.0 Hypertensive heart disease with heart failure; E87.2 Acidosis; J44.0 Chronic obstructive pulmonary disease with (acute) lower respiratory infection; I50.9 Heart failure, unspecified; J44.1 Chronic obstructive pulmonary disease with (acute) exacerbation; E86.0 Dehydration; H91.90 Unspecified hearing loss, unspecified ear; E87.6 Hypokalemia; E78.5 Hyperlipidemia, unspecified; K21.9 Gastro-esophageal reflux disease without esophagitis; N40.0 Benign prostatic hyperplasia without lower urinary tract symptoms; I25.10 Atherosclerotic heart disease of native coronary artery without angina pectoris; Z66 Do not resuscitate; R63.4 Abnormal weight loss; Z87.891 Personal history of nicotine dependence; Z95.810 Presence of automatic (implantable) cardiac defibrillator; Z99.81 Dependence on supplemental oxygen
CPT/HCPCS: 36600; 71010; 80048; 80053; 81001; 82805; 83605; 83880; 85025; 85027; 87040; 87641; 93005; 93970; 94002; 94150; 94640; 94667; 94668; 96365; J1170; J1644; J1956; J2930; J3480; J7030